=== PATIENT | female | born 1955 | race African-American/Black ===

== ENCOUNTER 2023-04-01 18:13 | Inpatient (IN) ==
--- NOTE | 2023-04-01 18:32 | DR.SOBA ---
HPI Time Seen Time Seen by Provider: 04/01/23 18:32 Complaints Chief Complaint Doctors Comments: 67-year-old female brought in by EMS for evaluation. Has been having increasing swelling of her lower extremities over the past few weeks. She is also having exertional dyspnea, that is getting worse. She has a cough productive of some white sputum. Denies any chest pain. She has had no bowel or bladder issue. Her primary care physician, Dr. Hills, added Lasix to her regimen in December. She states she has been taking it. Denies fever, chills. Reviewed Nurses Notes Reviewed: Yes Source History Provided: Patient, EMS and Other (EMR) PMH PMH Past Surgical History: No Social History Do you use any recreational Drugs:: No ROS Review of Systems Constitutional: Weakness Eyes: No Symptoms Reported ENTM: No Symptoms Reported Respiratoy: Moist Cough and Short of Breath Cardiovascular: Edema Gastrointestinal/Abdominal: No Symptoms Reported Genitourinary: No Symptoms Reported Neurological: Weakness Musculoskeletal: No Symptoms Reported Integumentary: No Symptoms Reported All Other Systems: Reviewed and Negative PE Vital Signs Vitals: Vital Signs Temperature 97.7 F Respiratory Rate 20 Blood Pressure 106/66 General General Appearance: Alert and In No Apparent Distress Eyes Eye exam: PERRL and EOMI ENT ENT Exam: Normal Oropharynx and Mucous Membranes Moist Neck Neck Exam: Other (+JVD); negative Tenderness Respiratory Respiratory Exam: Other (Has bibasilar rales); negative Accessory Muscle Use or Respiratory Distress Cardiovascular Cardiovascular Exam: Regular Rate, Normal Rhythm and Normal Heart Sounds Abdominal Exam Abdominal Exam: Normal Bowel Sounds, Soft and Other ( +Swelling of the abdominal wall); negative Tenderness Extremities Extremities Exam: Edema (4+ pitting edema bilateral lower extremity) Back Back Exam: Other (Presacral edema) Neurologic Neurological Exam: Alert, Oriented X3 and CN II-XII Intact; negative Motor Sensory Deficit Skin Skin Exam: Warm and Dry COURSE Treatment Treatment: 67-year-old female, presents with increasing swelling. Clinically with anasarca. Work-up initiated. Patient given IV Lasix. 2000 -EKG with low voltage QRS, no acute ischemic changes. Chest x-ray with bilateral effusions, right greater than left, with increased markings consistent with pulmonary vascular congestion. Labs show a hemoglobin of 5.3 with an MCV of 69. Her BNP is elevated 2,380. Severe anemia, anasarca, abnormal troponin. discussed with her primary care attending, Dr. Hills. He feels the patient may do better at a facility with higher level of care, in particular cardiology. Will repeat a 2 hr troponin, to see if it is trending higher. Patient was signed over to my relief physician, Dr. Kumar. Repeat troponin was slightly higher. Patient admitted to Dr. Hills here. [facility] Labs Reviewed Laboratory Results Reviewed?: Yes 04/02/23 05:44 04/02/23 05:44 Laboratory: WBC 6.1 X10^3/uL (3.6-10.0) 04/01/23 18:46 RBC 2.74 X10^6/uL (3.5-5.4) L 04/01/23 18:46 Hgb 5.3 g/dL (12.0-16.0) L* 04/01/23 18:46 Hct 19.0 % (36.0-47.0) L* 04/01/23 18:46 MCV 69.1 fL (80.0-100.0) L 04/01/23 18:46 MCH 19.4 pg (27.0-34.0) L 04/01/23 18:46 MCHC 28.2 g/dL (33.0-35.0) L 04/01/23 18:46 RDW 25.9 % (11.6-16.5) H 04/01/23 18:46 Plt Count 210 X10^3/uL (150.0-450.0) 04/01/23 18:46 Plt Count Comment Adequate (ADEQUATE) 04/01/23 18:46 MPV 8.8 fL (7.4-11.0) 04/01/23 18:46 Neut % (Auto) 33.1 % (42.0-75.0) L 04/01/23 18:46 Lymph % (Auto) 62.0 % (21.0-51.0) H 04/01/23 18:46 [place] % (Auto) 4.2 % (0.0-13.0) 04/01/23 18:46 Eos % (Auto) 0.2 % (0.9-2.9) L 04/01/23 18:46 Baso % (Auto) 0.5 % (0.2-1.0) 04/01/23 18:46 Neut # (Auto) 2.0 x10^3/uL (2.2-4.8) L 04/01/23 18:46 Lymph # (Auto) 3.8 X10^3/uL (1.3-2.9) H 04/01/23 18:46 [place] # (Auto) 0.3 x10^3/uL (0.3-0.8) 04/01/23 18:46 Eos # (Auto) 0.0 x10^3/uL (0.0-0.2) 04/01/23 18:46 Baso # (Auto) 0.0 X10^3/uL (0.0-0.1) 04/01/23 18:46 Absolute Nucleated RBC 4.9 /100WBC 04/01/23 18:46 Total Counted 100 04/01/23 18:46 Neutrophils % (Manual) 82 % (39-76) H 04/01/23 18:46 Lymphocytes % (Manual) 14 % (13-43) 04/01/23 18:46 Monocytes % (Manual) 4 % (4-9) 04/01/23 18:46 Nucleated RBCs 5 04/01/23 18:46 Plt Morphology Comment Normal (NORMAL) 04/01/23 18:46 RBC Morphology Abnormal (NORMAL) A 04/01/23 18:46 Hypochromasia 3+ A 04/01/23 18:46 Poikilocytosis 1+ A 04/01/23 18:46 Anisocytosis 3+ A 04/01/23 18:46 Microcytosis 1+ A 04/01/23 18:46 Target Cells Present 04/01/23 18:46 Acanthocytes (Spur) Present 04/01/23 18:46 Schistocytes Present 04/01/23 18:46 Sodium 137 mmol/L (136-145) 04/01/23 18:46 Corrected Sodium 137 mmol/L (136-145) 04/01/23 18:46 Potassium 5.0 mmol/L (3.5-5.1) 04/01/23 18:46 Chloride 105 mmol/L (98-107) 04/01/23 18:46 Carbon Dioxide 26.0 mmol/L (21-32) 04/01/23 18:46 BUN 37 mg/dL (7-18) H 04/01/23 18:46 Creatinine 1.21 mg/dL (0.55-1.02) H 04/01/23 18:46 Est GFR (MDRD) Af Amer 57 (>60) L 04/01/23 18:46 Est GFR (MDRD) Non-Af 47 (>60) L 04/01/23 18:46 Glucose 114 mg/dL (65-99) H 04/01/23 18:46 Calcium 7.8 mg/dL (8.5-10.1) L 04/01/23 18:46 Corrected Calcium 9.2 mg/dL (8.5-10.1) 04/01/23 18:46 Total Bilirubin 0.70 mg/dL (0.2-1.0) 04/01/23 18:46 AST 34 Units/L (15-37) 04/01/23 18:46 ALT 11 Units/L (12-78) L 04/01/23 18:46 Alkaline Phosphatase 338 Units/L (46-116) H 04/01/23 18:46 Troponin I High Sens 112.5 ng/L (4.0-60.0) H* 04/01/23 20:46 B-Natriuretic Peptide 2380 pg/mL (0-79) H 04/01/23 18:46 Total Protein 6.9 g/dL (6.4-8.2) 04/01/23 18:46 Albumin 2.2 g/dL (3.4-5.0) L 04/01/23 18:46 Globulin 4.7 g/dL (2.5-4.5) H 04/01/23 18:46 Albumin/Globulin Ratio 0.5 Ratio (1.1-2.1) L 04/01/23 18:46 Severe anemia with a hemoglobin of 5.3, BNP elevated 2380. Initial troponin elevated at 90.5. Troponin bit higher at 112 XRAY XRAY Interpreted by: Self X-ray Results: Cardiomegaly with bilateral pleural effusions, right greater than left, with pulmonary vascular congestion. Opioid Opioid Risk Tool Age (Abhinav box if 16-45): No History of Preadolescent Sexual Abuse: No Total: 0 Total Score Risk Category: Low Risk Copyright: Michi CHEUNG predicting aberrant behaviors Discharge Plan Diagnosis Discharge Problem: Severe anemia, Anasarca, Elevated troponin Discharge Plan Patient Disposition: ADMITTED INPATIENT Condition: Stable
[2023-04-01] MEDS ORDERED: LASIX IVP ONE ×2 (18:38→18:41)
[2023-04-01 18:56] LABS: EOSINOPHILS % (AUTO) 0.2 % (0.9-2.9); WHITE BLOOD COUNT 6.1 X10^3/uL (3.6-10.0)
[2023-04-01 19:00] LABS: BASOPHILS % (AUTO) 0.5 % (0.2-1.0); LYMPHOCYTES # (AUTO) 3.8 X10^3/uL (1.3-2.9); MEAN CORPUSCULAR HEMOGLOBIN 19.4 pg (27.0-34.0); MEAN CORPUSCULAR HGB CONC 28.2 g/dL (33.0-35.0); MEAN CORPUSCULAR VOLUME 69.1 fL (80.0-100.0); MEAN PLATELET VOLUME 8.8 fL (7.4-11.0); MONOCYTES # (AUTO) 0.3 x10^3/uL (0.3-0.8); MONOCYTES % (AUTO) 4.2 % (0.0-13.0); NEUTROPHILS % (AUTO) 33.1 % (42.0-75.0); PLATELET COUNT 210 X10^3/uL (150.0-450.0); RED BLOOD COUNT 2.74 X10^6/uL (3.5-5.4); RED CELL DISTRIBUTION WIDTH 25.9 % (11.6-16.5)
[2023-04-01 19:05] LABS: HEMOGLOBIN 5.3 g/dL (12.0-16.0)
--- NOTE | 2023-04-01 19:07 | EKG ---
Test Reason : shortness of breath Blood Pressure : */* mmHG Vent. Rate : 81 BPM Atrial Rate : 81 BPM P-R Int : 148 ms QRS Dur : 82 ms QT Int : 360 ms P-R-T Axes : 58 47 247 degrees QTc Int : 418 ms Normal sinus rhythm Low voltage QRS Cannot rule out Anterior infarct , age undetermined Nonspecific ST and T wave abnormality Abnormal ECG No previous ECGs available Confirmed by Francis Tomlinson MD ([id number]) on 04/02/2023 9:14:18 AM Referred By: Confirmed By: Francis Tomlinson MD
[2023-04-01 19:21] LABS: ALBUMIN 2.2 g/dL (3.4-5.0); CALCIUM 7.8 mg/dL (8.5-10.1); COR CA(FOR HYPOALB) 9.2 mg/dL (8.5-10.1); CREATININE 1.21 mg/dL (0.55-1.02); TOTAL PROTEIN 6.9 g/dL (6.4-8.2)
[2023-04-01 19:30] LABS: ANISOCYTOSIS 3+; HYPOCHROMASIA 3+; MICROCYTOSIS 1+; PLATELET MORPHOLOGY COMMENT NORMAL (NORMAL)
[2023-04-01 19:31] LABS: TARGET CELLS PRESENT
[2023-04-01 19:35] LABS: SCHISTOCYTES PRESENT
[2023-04-01 19:36] LABS: POIKILOCYTOSIS 1+
--- NOTE | 2023-04-01 22:22 | DR.SOBA ---
HPI Time Seen Time Seen by Provider: 04/01/23 18:32 Primary Care Physician Primary Care Physician: nfd Complaints Chief Complaint:: pt states" she has been having trouble breathing and swelling for a couple of weeks." Pt denies any pain. Self Treatment fo Chief Complaint: pt takes lasixs and Toprolol. COVID-19 Coronavirus risk:travel/contact w/high risk person: No Has patient experienced Coronavirus symptoms: No Source History Provided: Patient, EMS and Other (EMR) Mode of Arrival Mode of Arrival: Stretcher Timing Onset of Chief Complaint: 03/11/23 PMH PMH Past Medical History: Yes Past Medical History: Hypertension Past Medical History Comment: pt not sure of medical hx Past Surgical History: No Family History History of Family Medical Conditions: Yes Family Medical History: Diabetes Mellitus Social History Alcohol Use: None Do you use any recreational Drugs:: No Lives With: Alone Lives Where: Home Travel Risk Coronavirus risk:travel/contact w/high risk person: No Has patient experienced Coronavirus symptoms: No Infectious screening In the last 2 months have you had wt loss of >10#?: NO Have you had fever, night sweats or hemotysis?: No Have you traveled outside the country in the last 6 months?: No Isolation: Standard PE Vital Signs Vitals: Vital Signs Temperature 97.7 F Respiratory Rate 20 Blood Pressure 79/46 Blood Pressure 82/51 Blood Pressure 79/52 Blood Pressure 73/44 Blood Pressure 73/44 Blood Pressure 107/63 Blood Pressure 107/63 Blood Pressure 103/53 Blood Pressure 103/53 Blood Pressure 94/59 Blood Pressure 94/59 Blood Pressure 106/66 Blood Pressure 106/66 Blood Pressure 106/66 COURSE Treatment Treatment: EKG, labs, x-rays Reevaluation 1st: Improved ROR Labs Reviewed Laboratory Results Reviewed?: Yes 04/01/23 18:46 04/01/23 18:46 Laboratory: WBC 6.1 X10^3/uL (3.6-10.0) 04/01/23 18:46 RBC 2.74 X10^6/uL (3.5-5.4) L 04/01/23 18:46 Hgb 5.3 g/dL (12.0-16.0) L* 04/01/23 18:46 Hct 19.0 % (36.0-47.0) L* 04/01/23 18:46 MCV 69.1 fL (80.0-100.0) L 04/01/23 18:46 MCH 19.4 pg (27.0-34.0) L 04/01/23 18:46 MCHC 28.2 g/dL (33.0-35.0) L 04/01/23 18:46 RDW 25.9 % (11.6-16.5) H 04/01/23 18:46 Plt Count 210 X10^3/uL (150.0-450.0) 04/01/23 18:46 Plt Count Comment Adequate (ADEQUATE) 04/01/23 18:46 MPV 8.8 fL (7.4-11.0) 04/01/23 18:46 Neut % (Auto) 33.1 % (42.0-75.0) L 04/01/23 18:46 Lymph % (Auto) 62.0 % (21.0-51.0) H 04/01/23 18:46 [place] % (Auto) 4.2 % (0.0-13.0) 04/01/23 18:46 Eos % (Auto) 0.2 % (0.9-2.9) L 04/01/23 18:46 Baso % (Auto) 0.5 % (0.2-1.0) 04/01/23 18:46 Neut # (Auto) 2.0 x10^3/uL (2.2-4.8) L 04/01/23 18:46 Lymph # (Auto) 3.8 X10^3/uL (1.3-2.9) H 04/01/23 18:46 [place] # (Auto) 0.3 x10^3/uL (0.3-0.8) 04/01/23 18:46 Eos # (Auto) 0.0 x10^3/uL (0.0-0.2) 04/01/23 18:46 Baso # (Auto) 0.0 X10^3/uL (0.0-0.1) 04/01/23 18:46 Absolute Nucleated RBC 4.9 /100WBC 04/01/23 18:46 Total Counted 100 04/01/23 18:46 Neutrophils % (Manual) 82 % (39-76) H 04/01/23 18:46 Lymphocytes % (Manual) 14 % (13-43) 04/01/23 18:46 Monocytes % (Manual) 4 % (4-9) 04/01/23 18:46 Nucleated RBCs 5 04/01/23 18:46 Plt Morphology Comment Normal (NORMAL) 04/01/23 18:46 RBC Morphology Abnormal (NORMAL) A 04/01/23 18:46 Hypochromasia 3+ A 04/01/23 18:46 Poikilocytosis 1+ A 04/01/23 18:46 Anisocytosis 3+ A 04/01/23 18:46 Microcytosis 1+ A 04/01/23 18:46 Target Cells Present 04/01/23 18:46 Acanthocytes (Spur) Present 04/01/23 18:46 Schistocytes Present 04/01/23 18:46 Sodium 137 mmol/L (136-145) 04/01/23 18:46 Corrected Sodium 137 mmol/L (136-145) 04/01/23 18:46 Potassium 5.0 mmol/L (3.5-5.1) 04/01/23 18:46 Chloride 105 mmol/L (98-107) 04/01/23 18:46 Carbon Dioxide 26.0 mmol/L (21-32) 04/01/23 18:46 BUN 37 mg/dL (7-18) H 04/01/23 18:46 Creatinine 1.21 mg/dL (0.55-1.02) H 04/01/23 18:46 Est GFR (MDRD) Af Amer 57 (>60) L 04/01/23 18:46 Est GFR (MDRD) Non-Af 47 (>60) L 04/01/23 18:46 Glucose 114 mg/dL (65-99) H 04/01/23 18:46 Calcium 7.8 mg/dL (8.5-10.1) L 04/01/23 18:46 Corrected Calcium 9.2 mg/dL (8.5-10.1) 04/01/23 18:46 Total Bilirubin 0.70 mg/dL (0.2-1.0) 04/01/23 18:46 AST 34 Units/L (15-37) 04/01/23 18:46 ALT 11 Units/L (12-78) L 04/01/23 18:46 Alkaline Phosphatase 338 Units/L (46-116) H 04/01/23 18:46 Troponin I High Sens 112.5 ng/L (4.0-60.0) H* 04/01/23 20:46 B-Natriuretic Peptide 2380 pg/mL (0-79) H 04/01/23 18:46 Total Protein 6.9 g/dL (6.4-8.2) 04/01/23 18:46 Albumin 2.2 g/dL (3.4-5.0) L 04/01/23 18:46 Globulin 4.7 g/dL (2.5-4.5) H 04/01/23 18:46 Albumin/Globulin Ratio 0.5 Ratio (1.1-2.1) L 04/01/23 18:46 XRAY XRAY Interpreted by: Radiologist Opioid Opioid Risk Tool Age (Abhinav box if 16-45): No History of Preadolescent Sexual Abuse: No Total: 0 Total Score Risk Category: Low Risk Copyright: Michi CHEUNG predicting aberrant behaviors Discharge Plan Diagnosis Discharge Problem: Severe anemia, Anasarca, Elevated troponin Discharge Plan Patient Disposition: ADMITTED INPATIENT Condition: Stable Prescriptions: No Action trazodone 100 mg tablet 100 mg PO QPM Qty: 30 3RF azithromycin [Zithromax Z-Esa] 250 mg tablet See Rx Instructions PO .COMPLEX Qty: 6 0RF Rx Instructions: For 250 mg dose pack: take 500 mg today (day 1), then 250 mg for 4 days (days 2-5) PO metoprolol succinate 50 mg tablet extended release 24 hr 50 mg PO QDAY Qty: 30 3RF benzonatate 200 mg capsule 200 mg PO BID-TID PRN (Reason: cough) Qty: 30 2RF levofloxacin 500 mg tablet 500 mg PO QDAY Qty: 10 0RF methylprednisolone [Medrol (Esa)] 4 mg tablets,dose pack See Rx Instructions PO PER PKG DIR Qty: 21 0RF Rx Instructions: PO PER PKG DIR gabapentin 300 mg capsule 300 mg PO TID ipratropium-albuterol 20-100 mcg/actuation mist 1 puff inhalation Q6H Qty: 4 5RF ammonium lactate 12 % cream topical Patient Comments: [NO ORIGINAL SIG] chlorthalidone 25 mg tablet 25 mg PO QDAY Qty: 90 3RF hydrocodone-acetaminophen 10-325 mg tablet 1 tab PO Q6H MDD 3 PRN (Reason: pain) 30 Days Qty: 120 0RF omeprazole 40 mg capsule,delayed release(DR/EC) 40 mg PO QDAY Qty: 90 3RF tizanidine 4 mg tablet 4 mg PO TID PRN (Reason: for muscle relaxation) Qty: 60 3RF furosemide 20 mg tablet 20 mg PO BID Qty: 60 5RF potassium chloride 10 mEq tablet extended release 10 meq PO BID Qty: 60 3RF Rx Instructions: Take potassium tablets when furosemide is taken. Health Concerns: Post Hospitalization: new medications and changes needed to prevent readmission or further decline. Pt educated and given instructions on all concerns. Plan of Treatment: Continue with present treatment and follow up plan. Pt is to keep follow up appointment as instructed and take medications as ordered. Follow ups/Referrals Follow ups/Referrals: STALIN BETTENCOURT [Primary Care Provider] - 3 days
[2023-04-01 23:19] LABS: BILIRUBIN,URINE NEGATIVE (NEGATIVE); BLOOD/HEMOGLOBIN,URINE 2+ (NEGATIVE); GLUCOSE, URINE NEGATIVE (NEGATIVE); KETONES,URINE NEGATIVE (NEGATIVE); LEUKOCYTE ESTERASE ,URINE 2+ (NEGATIVE); NITRITES,URINE NEGATIVE (NEGATIVE); PROTEIN,URINE 2+ (NEGATIVE); UROBILINOGEN,URINE NORMAL (NORMAL)
--- NOTE | 2023-04-01 23:58 | RAD ---
HISTORYpt states" she has been having trouble breathing and swelling for a couple of weeks." Pt denies any pain. Relevant Clinical InformationSTUDYCHEST, 1 VIEWCOMPARISONNoneFINDINGSThe trachea is midline. The cardiac silhouette is mildly enlarged.. Moderate-sized loculated right pleural effusion. Small left pleural effusion. Bibasilar is subsegmental atelectasis or infiltrates. The bony thorax is unremarkable.IMPRESSIONMild cardiomegalyBilateral pleural effusions right greater than left with underlying subsegmental atelectasis and/or infiltrates..Electronically signed by: Pasquale Galeas (Apr 01, 2023 23:57:27)
[2023-04-02 00:21] LABS: APPEARANCE,URINE TURBID (CLEAR); BACTERIA,URINE 1+ /HPF (NEGATIVE); COLOR,URINE YELLOW (YELLOW); SQUAMOUS EPITHELIAL CELL,UR MANY /HPF (NEGATIVE)
[2023-04-02 01:26] VITALS: BMI 23.3
[2023-04-02] MEDS ORDERED: DUONEB 0.5 MG/3 MG (3 mL) NEB ONE (01:29)
[2023-04-02] MEDS: DUONEB 0.5 MG/3 MG (3 mL) NEB SCH ×4 (01:30→17:22)
[2023-04-02 06:10] LABS: MEAN PLATELET VOLUME 8.8 fL (7.4-11.0)
[2023-04-02 06:19] LABS: BASOPHILS # (AUTO) 0.1 X10^3/uL (0.0-0.1); BASOPHILS % (AUTO) 1.1 % (0.2-1.0); EOSINOPHILS % (AUTO) 0.2 % (0.9-2.9); LYMPHOCYTES # (AUTO) 0.7 X10^3/uL (1.3-2.9); LYMPHOCYTES % (AUTO) 9.9 % (21.0-51.0); MEAN CORPUSCULAR HEMOGLOBIN 19.9 pg (27.0-34.0); MEAN CORPUSCULAR HGB CONC 28.7 g/dL (33.0-35.0); MEAN CORPUSCULAR VOLUME 69.5 fL (80.0-100.0); MONOCYTES # (AUTO) 0.8 x10^3/uL (0.3-0.8); MONOCYTES % (AUTO) 12.1 % (0.0-13.0); NEUTROPHILS # (AUTO) 5.1 x10^3/uL (2.2-4.8); NEUTROPHILS % (AUTO) 76.7 % (42.0-75.0); PLATELET COUNT 192 X10^3/uL (150.0-450.0); RED BLOOD COUNT 2.73 X10^6/uL (3.5-5.4); RED CELL DISTRIBUTION WIDTH 26.2 % (11.6-16.5)
[2023-04-02 06:21] LABS: ALANINE AMINOTRANSFERASE 11 Units/L (12-78); ALBUMIN 2.4 g/dL (3.4-5.0); ALKALINE PHOSPHATASE 365 Units/L (46-116); ASPARTATE AMINO TRANSFERASE 31 Units/L (15-37); BLOOD UREA NITROGEN 38 mg/dL (7-18); CALCIUM 8.4 mg/dL (8.5-10.1); CHLORIDE 103 mmol/L (98-107); COR CA(FOR HYPOALB) 9.7 mg/dL (8.5-10.1); COR NA(FOR HYPERGLY) 140 mmol/L (136-145); CREATININE 1.11 mg/dL (0.55-1.02); GLUCOSE 126 mg/dL (65-99); POTASSIUM 4.2 mmol/L (3.5-5.1); SODIUM 139 mmol/L (136-145); TOTAL PROTEIN 7.2 g/dL (6.4-8.2); eGFR NON BLACK RACES 52 (>60)
[2023-04-02 06:23] LABS: HEMOGLOBIN 5.4 g/dL (12.0-16.0)
[2023-04-02 06:52] LABS: ANISOCYTOSIS 3+; HYPOCHROMASIA 3+; MICROCYTOSIS 1+; PLATELET MORPHOLOGY COMMENT NORMAL (NORMAL); POIKILOCYTOSIS 1+; TARGET CELLS 1+
[2023-04-02 06:53] LABS: SCHISTOCYTES SLIGHT; WHITE BLOOD COUNT 6.6 X10^3/uL (3.6-10.0)
[2023-04-02] MEDS ORDERED: NORCO 10/325 TAB PO PRN (08:35)
[2023-04-02] MEDS ORDERED: TYLENOL 325 MG TAB PO ONE ×2 (08:43→12:00)
[2023-04-02] MEDS ORDERED: BENADRYL INJ 50 MG VIAL IVP ONE ×2 (08:44→12:00)
[2023-04-02] MEDS: LASIX IVP SCH ×2 (09:13→17:22)
[2023-04-02] MEDS: K-DUR TAB 20 MEQ PO SCH ×2 (09:13→20:30)
[2023-04-02] MEDS ORDERED: ZANAFLEX PO PRN (09:15)
[2023-04-02] MEDS ORDERED: PriLOSEC PO SCH (10:00)
[2023-04-02] MEDS: NEURONTIN CAP 300 MG PO SCH ×3 (11:36→21:15)
--- NOTE | 2023-04-02 14:16 | DR.CONSULT ---
CONSULT Consultation for Day of: Date: 04/02/23 Chief Complaint Chief Complaint: sob/edema/weak Allergies Allergies Allergy/AdvReac Type Severity Reaction Status Date / Time No Known Drug Allergies Allergy Unknown Verified 12/16/22 14:01 History of Present Illness History of Present Illness: no past cardiac history- does smoke/have htn/gerd/edema- admitted for symptoms above. ekg: nsr ?as mi ns st/t cxr: big heart/r pleural effusion labs: hct 19 with mcv69, cr 1.1 bun 38 bnp 2010 trop 90-112, albumin 2.4 ua: 2plus protein- awaiting blood products/has compression device on legs and diureised some. 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- has lost 50 lbs in last few years Past Medical History Past Medical History: Hypertension Family History Family Medical History: Diabetes Mellitus Social History Does patient currently use any type of tobacco product: Yes (Cigarettes) Have you used tobacco products in the last 12 months: Yes Type of Tobacco Use: Cigarettes How many years tobacco product used: 10 Does any household member use tobacco: No Alcohol Use: None Drug Use: None Medications Home Medications: No Known Drug Allergies Allergy (Unknown, Verified 12/16/22 14:01) Physical Exam Vital Signs: Vital Signs Temperature 98.2 F Temperature 97.5 F Pulse Rate [Radial] 92 Pulse Rate [Radial] 89 Respiratory Rate 18 Respiratory Rate 22 Respiratory Rate 22 Blood Pressure [Right Arm] 89/54 Blood Pressure [Right Arm] 97/54 O2 Sat by Pulse Oximetry 95 thin elevated jvd decreased bs r base FREDA 1-2 plus edema Plan (1) Severe anemia: Status: Acute Plan: transfuse jarrett (2) Anasarca: Status: Acute (3) Elevated troponin: Status: Acute (4) Suspected chronic obstructive pulmonary disease based on initial evaluation: Status: Acute (5) Weakness: Status: Acute (6) Left atrial mass: Status: Acute (7) Low serum albumin: Status: Acute (8) Proteinuria: Status: Acute (9) Right heart failure: Status: Acute Narrative Support Text: big r heart/edema/elevated trop- consider PE but so anemic to give heparin Plan: too complicted pt- transfer to tertiary care facility- family desires [facility]
[2023-04-02] MEDS: PROTONIX INJ 40 MG VIAL IVP SCH (20:30)
[2023-04-02] MEDS: DESYREL PO SCH (20:30)
--- NOTE | 2023-04-02 21:53 | DR.H&P ---
H&P History & Physical for Day of: H&P Date: 04/02/23 Chief Complaint Chief Complaint: Increasing swelling of her legs Allergies Allergies Allergy/AdvReac Type Severity Reaction Status Date / Time No Known Drug Allergies Allergy Unknown Verified 12/16/22 14:01 History of Present Illness History of Present Illness: This is a pleasant 67-year-old black female well-kno wn to me. She presented to the [facility] emergency department last night with complaints of increasing swelling of her legs. Last saw her was in December 2022. She was complaining of bilateral lower extremity edema that time and I started her on p.o. Lasix at that time. She was also found to be profoundly anemic with a hemoglobin of 5.3 in the emergency department last night. Her hemoglobin has slightly come up this morning to 5.4. We have ordered 2 units of packed red blood cells to be given and premedicate her with Tylenol and Benadryl prior to transfusion. A BMP was checked and it was elevated at 2380. She also had an elevated troponin at 90.5. A repeat troponin increased to 112.5. This morning the patient reports she is feeling slightly better but is still short of breath. We will put on a consultation with cardiology and after Dr. Tomlinson saw the patient he recommended transferring the patient to a tertiary care center because of all the problems that she has going on. Echocardiogram showed that she has a left atrial mass. She also has profound anemia along with hypo albuminemia. However before we transfer we need to transfuse her and get her hemoglobin up and we will diurese her to try get off this extra fluid prior to transfer. The patient and her family wishes her to go to [place], [place] for continued treatment of these problems. Past Medical History Past Medical History: Hypertension Family History Family Medical History: Diabetes Mellitus Social History Does patient currently use any type of tobacco product: Yes (Cigarettes) Have you used tobacco products in the last 12 months: Yes Type of Tobacco Use: Cigarettes How many years tobacco product used: 10 Does any household member use tobacco: No Alcohol Use: None Drug Use: None Medications Home Medications: Home Medications Medication Instructions Recorded Confirmed Type gabapentin 300 mg capsule 300 mg PO TID 09/17/22 11/13/22 History ammonium lactate 12 % topical cream applic topical 12/15/22 12/15/22 History Labs 04/02/23 05:44 04/02/23 05:44 Labs: 04/02/23 01:30 Sputum - Expectorated Sputum - Final Laboratory WBC 6.6 X10^3/uL (3.6-10.0) 04/02/23 05:44 RBC 2.73 X10^6/uL (3.5-5.4) L 04/02/23 05:44 Hgb 5.4 g/dL (12.0-16.0) L* 04/02/23 05:44 Hct 19.0 % (36.0-47.0) L* 04/02/23 05:44 MCV 69.5 fL (80.0-100.0) L 04/02/23 05:44 MCH 19.9 pg (27.0-34.0) L 04/02/23 05:44 MCHC 28.7 g/dL (33.0-35.0) L 04/02/23 05:44 RDW 26.2 % (11.6-16.5) H 04/02/23 05:44 Plt Count 192 X10^3/uL (150.0-450.0) 04/02/23 05:44 Plt Count Comment Adequate (ADEQUATE) 04/02/23 05:44 MPV 8.8 fL (7.4-11.0) 04/02/23 05:44 Neut % (Auto) 76.7 % (42.0-75.0) H 04/02/23 05:44 Lymph % (Auto) 9.9 % (21.0-51.0) L 04/02/23 05:44 [place] % (Auto) 12.1 % (0.0-13.0) 04/02/23 05:44 Eos % (Auto) 0.2 % (0.9-2.9) L 04/02/23 05:44 Baso % (Auto) 1.1 % (0.2-1.0) H 04/02/23 05:44 Neut # (Auto) 5.1 x10^3/uL (2.2-4.8) H 04/02/23 05:44 Lymph # (Auto) 0.7 X10^3/uL (1.3-2.9) L 04/02/23 05:44 [place] # (Auto) 0.8 x10^3/uL (0.3-0.8) 04/02/23 05:44 Eos # (Auto) 0.0 x10^3/uL (0.0-0.2) 04/02/23 05:44 Baso # (Auto) 0.1 X10^3/uL (0.0-0.1) 04/02/23 05:44 Absolute Nucleated RBC 6.2 /100WBC 04/02/23 05:44 Total Counted 100 04/01/23 18:46 Neutrophils % (Manual) 82 % (39-76) H 04/01/23 18:46 Lymphocytes % (Manual) 14 % (13-43) 04/01/23 18:46 Monocytes % (Manual) 4 % (4-9) 04/01/23 18:46 Nucleated RBCs 5 04/01/23 18:46 Plt Morphology Comment Normal (NORMAL) 04/02/23 05:44 RBC Morphology Abnormal (NORMAL) A 04/02/23 05:44 Hypochromasia 3+ A 04/02/23 05:44 Poikilocytosis 1+ A 04/02/23 05:44 Anisocytosis 3+ A 04/02/23 05:44 Microcytosis 1+ A 04/02/23 05:44 Target Cells 1+ A 04/02/23 05:44 Acanthocytes (Spur) Slight 04/02/23 05:44 Schistocytes Slight A 04/02/23 05:44 Sodium 139 mmol/L (136-145) 04/02/23 05:44 Corrected Sodium 140 mmol/L (136-145) 04/02/23 05:44 Potassium 4.2 mmol/L (3.5-5.1) 04/02/23 05:44 Chloride 103 mmol/L (98-107) 04/02/23 05:44 Carbon Dioxide 26.0 mmol/L (21-32) 04/02/23 05:44 BUN 38 mg/dL (7-18) H 04/02/23 05:44 Creatinine 1.11 mg/dL (0.55-1.02) H 04/02/23 05:44 Est GFR (MDRD) Af Amer > 60 (>60) 04/02/23 05:44 Est GFR (MDRD) Non-Af 52 (>60) L 04/02/23 05:44 Glucose 126 mg/dL (65-99) H 04/02/23 05:44 Calcium 8.4 mg/dL (8.5-10.1) L 04/02/23 05:44 Corrected Calcium 9.7 mg/dL (8.5-10.1) 04/02/23 05:44 Total Bilirubin 0.70 mg/dL (0.2-1.0) 04/02/23 05:44 AST 31 Units/L (15-37) 04/02/23 05:44 ALT 11 Units/L (12-78) L 04/02/23 05:44 Alkaline Phosphatase 365 Units/L (46-116) H 04/02/23 05:44 Troponin I High Sens 112.5 ng/L (4.0-60.0) H* 04/01/23 20:46 B-Natriuretic Peptide 2010 pg/mL (0-79) H 04/02/23 05:44 Total Protein 7.2 g/dL (6.4-8.2) 04/02/23 05:44 Albumin 2.4 g/dL (3.4-5.0) L 04/02/23 05:44 Globulin 4.8 g/dL (2.5-4.5) H 04/02/23 05:44 Albumin/Globulin Ratio 0.5 Ratio (1.1-2.1) L 04/02/23 05:44 Specimen Type Catherized urine 04/01/23 23:11 Urine Color Yellow (YELLOW) 04/01/23 23:11 Urine Appearance Turbid (CLEAR) 04/01/23 23:11 Urine pH 5.0 (5.0 - 8.0) 04/01/23 23:11 Ur Specific [place] 1.020 (1.000-1.030) 04/01/23 23:11 Urine Protein 2+ (NEGATIVE) 04/01/23 23:11 Urine Glucose (UA) Negative (NEGATIVE) 04/01/23 23:11 Urine Ketones Negative (NEGATIVE) 04/01/23 23:11 Urine Blood 2+ (NEGATIVE) 04/01/23 23:11 Urine Nitrite Negative (NEGATIVE) 04/01/23 23:11 Urine Bilirubin Negative (NEGATIVE) 04/01/23 23:11 Urine Urobilinogen Normal (NORMAL) 04/01/23 23:11 Ur Leukocyte Esterase 2+ (NEGATIVE) 04/01/23 23:11 Urine RBC 5-10 /HPF (0-3) A 04/01/23 23:11 Urine WBC 5-10 /HPF (0-5) A 04/01/23 23:11 Ur Squamous Epith Cells Many /HPF (NEGATIVE) 04/01/23 23:11 Amorphous Sediment 2+ /HPF (NEGATIVE) 04/01/23 23:11 Urine Bacteria 1+ /HPF (NEGATIVE) 04/01/23 23:11 Ur Culture Indicated? No/not indicated 04/01/23 23:11 Blood Type B POSITIVE 04/01/23 22:51 Blood Type B POSITIVE 04/01/23 22:51 Antibody Screen Negative 04/01/23 22:51 Crossmatch See Detail 04/01/23 22:51 Review of Systems Constitutional: Weakness and Malaise Eyes: No Symptoms Reported ENT: No Symptoms Reported Respiratory: Cough, Shortness of Breath and SOB with Excertion Cardiovascular: Orthopnea and Light Headedness Gastrointestinal: No Symptoms Reported Genitourinary: No Symptoms Reported Musculoskeletal: No Symptoms Reported Skin: No Symptoms Reported Neurological: No Symptoms Reported Physical Exam Vital Signs: Vital Signs Temperature 98.4 F Temperature 98.1 F Pulse Rate [Radial] 95 Pulse Rate [Radial] 94 Respiratory Rate 20 Respiratory Rate 16 Blood Pressure [Right Arm] 93/56 Blood Pressure [Right Arm] 97/59 O2 Sat by Pulse Oximetry 96 O2 Sat by Pulse Oximetry 93 Oriented: Normal, Time, Person and Place Eyes: Normal Ear: Normal Nose: Normal Throat: Normal Respiratory: RLL Rales and LLL Rales Cardiovascular: Normal Auscultation: Bowel Sounds: Normal Palpation: Normal Tenderness: Normal Skin: Normal Musculoskeletal: Normal Psychiatric: Normal Mood Description: Calm Affect: Normal Speech Pattern: Clear and Appropriate Assessment/Plan (1) Severe anemia: Status: Acute Plan: Transfused 2 L packed red blood cells and premedicate with p.o. Tylenol and IV Benadryl prior to transfusion. (2) Anasarca: Status: Acute Plan: IV diuresis with Lasix. (3) Elevated troponin: Status: Acute Plan: Cardiology consultation. (4) Suspected chronic obstructive pulmonary disease based on initial evaluation: Status: Acute (5) Weakness: Status: Acute (6) Left atrial mass: Status: Acute Plan: We will plan on transferring the patient to [place], [place] so the patient may have further evaluation and treatment there at a tertiary care center. (7) Low serum albumin: Status: Acute (8) Proteinuria: Status: Acute (9) Right heart failure: Status: Acute Review H&P Reviewed: Yes Patient was examined?: Yes
[2023-04-02] MEDS ORDERED: NS 250 ML IV 250 ML IV ONE (21:59)
[2023-04-03] MEDS: DUONEB 0.5 MG/3 MG (3 mL) NEB SCH ×4 (00:02→17:03)
[2023-04-03 03:22] LABS: RED BLOOD COUNT 3.65 X10^6/uL (3.5-5.4)
[2023-04-03 03:25] LABS: BASOPHILS # (AUTO) 0.1 X10^3/uL (0.0-0.1); BASOPHILS % (AUTO) 0.8 % (0.2-1.0); EOSINOPHILS % (AUTO) 0.1 % (0.9-2.9); LYMPHOCYTES # (AUTO) 0.8 X10^3/uL (1.3-2.9); LYMPHOCYTES % (AUTO) 8.2 % (21.0-51.0); MEAN CORPUSCULAR HEMOGLOBIN 22.7 pg (27.0-34.0); MEAN CORPUSCULAR HGB CONC 30.6 g/dL (33.0-35.0); MEAN CORPUSCULAR VOLUME 74.1 fL (80.0-100.0); MONOCYTES % (AUTO) 10.3 % (0.0-13.0); NEUTROPHILS # (AUTO) 7.5 x10^3/uL (2.2-4.8); NEUTROPHILS % (AUTO) 80.6 % (42.0-75.0); PLATELET COUNT 183 X10^3/uL (150.0-450.0); RED CELL DISTRIBUTION WIDTH 26.2 % (11.6-16.5)
[2023-04-03 03:29] LABS: ALANINE AMINOTRANSFERASE 7 Units/L (12-78); ALBUMIN 2.2 g/dL (3.4-5.0); ALKALINE PHOSPHATASE 360 Units/L (46-116); ASPARTATE AMINO TRANSFERASE 29 Units/L (15-37); BLOOD UREA NITROGEN 36 mg/dL (7-18); CALCIUM 7.9 mg/dL (8.5-10.1); CARBON DIOXIDE 29.2 mmol/L (21-32); CHLORIDE 105 mmol/L (98-107); COR CA(FOR HYPOALB) 9.3 mg/dL (8.5-10.1); COR NA(FOR HYPERGLY) 139 mmol/L (136-145); CREATININE 1.01 mg/dL (0.55-1.02); GLUCOSE 115 mg/dL (65-99); HEMOGLOBIN 8.3 g/dL (12.0-16.0); POTASSIUM 4.4 mmol/L (3.5-5.1); SODIUM 139 mmol/L (136-145); TOTAL PROTEIN 6.9 g/dL (6.4-8.2); WHITE BLOOD COUNT 9.3 X10^3/uL (3.6-10.0); eGFR NON BLACK RACES 58 (>60)
[2023-04-03 03:34] LABS: ANISOCYTOSIS 3+; HYPOCHROMASIA 2+; MICROCYTOSIS SLIGHT; PLATELET MORPHOLOGY COMMENT NORMAL (NORMAL); POIKILOCYTOSIS 1+
[2023-04-03 03:35] LABS: SCHISTOCYTES 1+; TARGET CELLS 2+
[2023-04-03] MEDS: NEURONTIN CAP 300 MG PO SCH ×3 (06:00→21:46)
[2023-04-03] MEDS: K-DUR TAB 20 MEQ PO SCH ×3 (08:34→21:46)
[2023-04-03] MEDS: PROTONIX INJ 40 MG VIAL IVP SCH ×2 (08:38→21:46)
[2023-04-03] MEDS: LASIX IVP SCH ×2 (08:38→17:13)
[2023-04-03 09:29] LABS: ABG ALLEN TEST POS; ABG BASE EXCESS 1.4 mmol/L (-2.0-2.0); ABG HCO3 29.3 mmol/L (22-26)
--- NOTE | 2023-04-03 14:24 | CT ---
EXAM:BRAIN W/O CONHISTORY:change in status; CHF, PT ON RESPIRATORCOMPARISON:NoneTECHNIQUE:CT scan of the brain was obtained from skull base to vertex without contrast. Dose reduction techniques including Automated Exposure Control (AEC) and adjustment of mA and kV were utilized.Contrast: NoneFINDINGS:Extraaxial: No conspicuous extraaxial fluid or masses.Parenchyma: No conspicuous masses or infarcts, keep in mind most infarcts are evident on MRI and not CT. Age appropriate involutionary changes with mild small vessel ischemic changesVentricles: Symmetric and normal in size shape and position.Sella: No conspicuous sellar masses.Orbits: The visualized portions of the orbits as well as the globes are unremarkable.If there is clinical suspicion or symptomatology that persists or gets worse correlation with an MRI of the brain may be helpful.IMPRESSION:1. No evidence of acute intracranial pathology.2. Age-appropriate involutionary changes.3. Microvascular ischemic disease.THIS IS AN ELECTRONICALLY VERIFIED FINAL [id number]/03/2023 2:20 PM - Electronically signed by Lars Gómez DO
[2023-04-03 18:35] LABS: ABG BASE EXCESS 2.7 mmol/L (-2.0-2.0)
[2023-04-03 18:36] LABS: ABG ALLEN TEST POS; ABG HCO3 32.1 mmol/L (22-26)
[2023-04-03 20:51] LABS: ABG BASE EXCESS 3.4 mmol/L (-2.0-2.0)
[2023-04-03 20:53] LABS: ABG ALLEN TEST POS
[2023-04-03] MEDS: DESYREL PO SCH (21:45)
[2023-04-04] MEDS: DUONEB 0.5 MG/3 MG (3 mL) NEB SCH ×4 (00:34→17:29)
[2023-04-04] MEDS: NEURONTIN CAP 300 MG PO SCH ×3 (05:24→21:05)
[2023-04-04 06:11] VITALS: O2SAT 100
[2023-04-04] MEDS: PROTONIX INJ 40 MG VIAL IVP SCH ×2 (08:14→20:12)
[2023-04-04] MEDS: LASIX IVP SCH ×2 (08:14→17:03)
[2023-04-04] MEDS: K-DUR TAB 20 MEQ PO SCH ×2 (08:15→20:13)
[2023-04-04] MEDS: ROCEPHIN VIAL 1 GRAM 1 G in NS 100 ML IV 100 ML IV SCH (10:48)
[2023-04-04] MEDS ORDERED: NS 250 ML IV 250 ML IV PRN (11:10)
[2023-04-04] MEDS ORDERED: NS 250 ML IV 250 ML IV ONE (11:15)
--- NOTE | 2023-04-04 11:39 | PCM.PROG ---
Progress Note Progress Note for Day of Date of Exam: 04/04/23 Subjective Subjective: The patient is less alert this morning. She does follow commands and is able to squeeze my hands with her hands bilaterally. Serial ABG showing that she has elevated CO2 and decreased PO2 and this is likely the cause of her decreased activity. She has received 2 units packed red blood cells and her hemoglobin is up to 8.3 this morning. Echocardiogram showed that she has a left atrial mass and the golf professional here, Dr. Tomlinson is recommended that we transfer to a tertiary care center. We got in touch with [facility] in [place], [place] and they have agreed to accept the patient. We will be making arrangements for her to go later today. Past Medical Family Social History Allergies: Allergies No Known Drug Allergies Allergy (Unknown, Verified 12/16/22 14:01) Onset Date: 04/25/2020 Review of Systems ROS: Changes notes (describe) (Altered mental status) Vital Signs and I&O's Vital Signs: Vital Signs Temperature 98.3 F Temperature 98.9 F Pulse Rate [Radial] 98 Pulse Rate [Radial] 100 Pulse Rate 104 Respiratory Rate 23 Respiratory Rate 20 Blood Pressure [Right Arm] 111/68 Blood Pressure [Right Arm] 96/62 O2 Sat by Pulse Oximetry 100 O2 Sat by Pulse Oximetry 100 O2 Sat by Pulse Oximetry 99 Intake and Output: Intake & Output 04/01/23 04/02/23 04/03/23 04/04/23 11:59 11:59 11:59 11:59 Intake Total 463 / 463 2048 / 2048 100 / 100 Output Total 260 / 260 1100 / 1100 1475 / 1475 Balance 203 / 203 948 / 948 -1375 / -1375 Physical Exam Oriented: Normal, Time, Person and Place Eyes: Normal Ear: Normal Nose: Normal Throat: Normal Cardiovascular: Normal Auscultation: Bowel Sounds: Normal Tenderness: Normal Skin: Normal Musculoskeletal: Normal Psychiatric: Normal Mood Description: Calm Affect: Normal Speech Pattern: Aphasic Laboratory and Diagnostics 04/03/23 03:08 04/03/23 03:08 Labs: 04/02/23 01:30 Sputum - Expectorated Sputum Sputum Culture - Preliminary Escherichia Coli 04/02/23 01:30 Sputum - Expectorated Sputum - Final Laboratory WBC 9.3 X10^3/uL (3.6-10.0) 10/27/23 03:08 RBC 3.65 X10^6/uL (3.5-5.4) 04/03/23 03:08 Hgb 8.3 g/dL (12.0-16.0) L D 04/03/23 03:08 Hct 27.0 % (36.0-47.0) L 04/03/23 03:08 MCV 74.1 fL (80.0-100.0) L 04/03/23 03:08 MCH 22.7 pg (27.0-34.0) L 04/03/23 03:08 MCHC 30.6 g/dL (33.0-35.0) L 04/03/23 03:08 RDW 26.2 % (11.6-16.5) H 04/03/23 03:08 Plt Count 183 X10^3/uL (150.0-450.0) 04/03/23 03:08 Plt Count Comment Adequate (ADEQUATE) 04/03/23 03:08 MPV 9.0 fL (7.4-11.0) 04/03/23 03:08 Neut % (Auto) 80.6 % (42.0-75.0) H 04/03/23 03:08 Lymph % (Auto) 8.2 % (21.0-51.0) L 04/03/23 03:08 [place] % (Auto) 10.3 % (0.0-13.0) 04/03/23 03:08 Eos % (Auto) 0.1 % (0.9-2.9) L 04/03/23 03:08 Baso % (Auto) 0.8 % (0.2-1.0) 04/03/23 03:08 Neut # (Auto) 7.5 x10^3/uL (2.2-4.8) H 04/03/23 03:08 Lymph # (Auto) 0.8 X10^3/uL (1.3-2.9) L 04/03/23 03:08 [place] # (Auto) 1.0 x10^3/uL (0.3-0.8) H 04/03/23 03:08 Eos # (Auto) 0.0 x10^3/uL (0.0-0.2) 04/03/23 03:08 Baso # (Auto) 0.1 X10^3/uL (0.0-0.1) 04/03/23 03:08 Absolute Nucleated RBC 13.2 /100WBC 04/03/23 03:08 Total Counted 100 04/01/23 18:46 Neutrophils % (Manual) 82 % (39-76) H 04/01/23 18:46 Lymphocytes % (Manual) 14 % (13-43) 04/01/23 18:46 Monocytes % (Manual) 4 % (4-9) 04/01/23 18:46 Nucleated RBCs 5 04/01/23 18:46 Plt Morphology Comment Normal (NORMAL) 04/03/23 03:08 RBC Morphology Abnormal (NORMAL) A 04/03/23 03:08 Dimorphic RBCs 1+ 04/03/23 03:08 Hypochromasia 2+ A 04/03/23 03:08 Poikilocytosis 1+ A 04/03/23 03:08 Anisocytosis 3+ A 04/03/23 03:08 Microcytosis Slight A 04/03/23 03:08 Target Cells 2+ A 04/03/23 03:08 Acanthocytes (Spur) Slight 04/03/23 03:08 Schistocytes 1+ A 04/03/23 03:08 Sample Site Rr 04/03/23 20:30 ABG pH 7.280 (7.35-7.45) L 04/03/23 20:30 ABG pCO2 68.0 mmHg (35.0-45.0) H* 04/03/23 20:30 ABG pO2 71.0 mmHg (80.0-100.0) L 04/03/23 20:30 ABG HCO3 32.0 mmol/L (22-26) H* 04/03/23 20:30 ABG O2 Saturation 92.0 % (90-100) 04/03/23 20:30 ABG Base Excess 3.4 mmol/L (-2.0-2.0) H 04/03/23 20:30 [facility] Test Pos 04/03/23 20:30 A-a Gradient 307.0 mmHg 04/03/23 20:30 FiO2 65.0 04/03/23 20:30 Blood Gas Comments Rafita well 04/03/23 20:30 Sodium 139 mmol/L (136-145) 04/03/23 03:08 Corrected Sodium 139 mmol/L (136-145) 04/03/23 03:08 Potassium 4.4 mmol/L (3.5-5.1) 04/03/23 03:08 Chloride 105 mmol/L (98-107) 04/03/23 03:08 Carbon Dioxide 29.2 mmol/L (21-32) 04/03/23 03:08 BUN 36 mg/dL (7-18) H 04/03/23 03:08 Creatinine 1.01 mg/dL (0.55-1.02) 04/03/23 03:08 Est GFR (MDRD) Af Amer > 60 (>60) 04/03/23 03:08 Est GFR (MDRD) Non-Af 58 (>60) L 04/03/23 03:08 Glucose 115 mg/dL (65-99) H 04/03/23 03:08 Calcium 7.9 mg/dL (8.5-10.1) L 04/03/23 03:08 Corrected Calcium 9.3 mg/dL (8.5-10.1) 04/03/23 03:08 Total Bilirubin 1.50 mg/dL (0.2-1.0) H 04/03/23 03:08 AST 29 Units/L (15-37) 04/03/23 03:08 ALT 7 Units/L (12-78) L 04/03/23 03:08 Alkaline Phosphatase 360 Units/L (46-116) H 04/03/23 03:08 Troponin I High Sens 105.8 ng/L (4.0-60.0) H* 04/03/23 20:30 B-Natriuretic Peptide 1780 pg/mL (0-79) H 04/03/23 03:08 Total Protein 6.9 g/dL (6.4-8.2) 04/03/23 03:08 Albumin 2.2 g/dL (3.4-5.0) L 04/03/23 03:08 Globulin 4.7 g/dL (2.5-4.5) H 04/03/23 03:08 Albumin/Globulin Ratio 0.5 Ratio (1.1-2.1) L 04/03/23 03:08 Specimen Type Catherized urine 04/01/23 23:11 Urine Color Yellow (YELLOW) 04/01/23 23:11 Urine Appearance Turbid (CLEAR) 04/01/23 23:11 Urine pH 5.0 (5.0 - 8.0) 04/01/23 23:11 Ur Specific [place] 1.020 (1.000-1.030) 04/01/23 23:11 Urine Protein 2+ (NEGATIVE) 04/01/23 23:11 Urine Glucose (UA) Negative (NEGATIVE) 04/01/23 23:11 Urine Ketones Negative (NEGATIVE) 04/01/23 23:11 Urine Blood 2+ (NEGATIVE) 04/01/23 23:11 Urine Nitrite Negative (NEGATIVE) 04/01/23 23:11 Urine Bilirubin Negative (NEGATIVE) 04/01/23 23:11 Urine Urobilinogen Normal (NORMAL) 04/01/23 23:11 Ur Leukocyte Esterase 2+ (NEGATIVE) 04/01/23 23:11 Urine RBC 5-10 /HPF (0-3) A 04/01/23 23:11 Urine WBC 5-10 /HPF (0-5) A 04/01/23 23:11 Ur Squamous Epith Cells Many /HPF (NEGATIVE) 04/01/23 23:11 Amorphous Sediment 2+ /HPF (NEGATIVE) 04/01/23 23:11 Urine Bacteria 1+ /HPF (NEGATIVE) 04/01/23 23:11 Ur Culture Indicated? No/not indicated 04/01/23 23:11 Blood Type B POSITIVE 04/01/23 22:51 Blood Type B POSITIVE 04/01/23 22:51 Antibody Screen Negative 04/01/23 22:51 Crossmatch See Detail 04/01/23 22:51 Radiology Reviewed: Yes Plan (1) Severe anemia: Status: Acute Plan: Transfused 2 L packed red blood cells and premedicate with p.o. Tylenol and IV Benadryl prior to transfusion. Hemoglobin is better now at 8.3. (2) Anasarca: Status: Acute Plan: IV diuresis with Lasix. (3) Elevated troponin: Status: Acute Plan: Cardiology consultation. (4) Weakness: Status: Acute (5) Left atrial mass: Status: Acute Plan: We will plan on transferring the patient to [place], [place] so the patient may have further evaluation and treatment there at a tertiary care center. (6) Low serum albumin: Status: Acute (7) Suspected chronic obstructive pulmonary disease based on initial evaluation: Status: Acute (8) Proteinuria: Status: Acute (9) Right heart failure: Status: Acute
[2023-04-04 11:55] LABS: ALANINE AMINOTRANSFERASE 12 Units/L (12-78); ALBUMIN 2.2 g/dL (3.4-5.0); ALKALINE PHOSPHATASE 318 Units/L (46-116); ASPARTATE AMINO TRANSFERASE 28 Units/L (15-37); BLOOD UREA NITROGEN 31 mg/dL (7-18); CALCIUM 8.1 mg/dL (8.5-10.1); CARBON DIOXIDE 33.2 mmol/L (21-32); CHLORIDE 105 mmol/L (98-107); COR CA(FOR HYPOALB) 9.5 mg/dL (8.5-10.1); CREATININE 0.83 mg/dL (0.55-1.02); GLUCOSE 96 mg/dL (65-99); POTASSIUM 3.9 mmol/L (3.5-5.1); SODIUM 140 mmol/L (136-145); TOTAL PROTEIN 7.1 g/dL (6.4-8.2); eGFR NON BLACK RACES > 60 (>60)
[2023-04-04 11:56] LABS: BASOPHILS % (AUTO) 0.4 % (0.2-1.0); EOSINOPHILS # (AUTO) 0.1 x10^3/uL (0.0-0.2); EOSINOPHILS % (AUTO) 0.4 % (0.9-2.9); HEMATOCRIT 28.9 % (36.0-47.0); HEMOGLOBIN 8.5 g/dL (12.0-16.0); LYMPHOCYTES # (AUTO) 0.6 X10^3/uL (1.3-2.9); LYMPHOCYTES % (AUTO) 4.9 % (21.0-51.0); MEAN CORPUSCULAR HGB CONC 29.2 g/dL (33.0-35.0); MEAN CORPUSCULAR VOLUME 75.3 fL (80.0-100.0); MEAN PLATELET VOLUME 9.2 fL (7.4-11.0); MONOCYTES % (AUTO) 8.2 % (0.0-13.0); NEUTROPHILS # (AUTO) 10.3 x10^3/uL (2.2-4.8); NEUTROPHILS % (AUTO) 86.1 % (42.0-75.0); PLATELET COUNT 188 X10^3/uL (150.0-450.0); RED BLOOD COUNT 3.84 X10^6/uL (3.5-5.4); RED CELL DISTRIBUTION WIDTH 26.9 % (11.6-16.5); WHITE BLOOD COUNT 11.9 X10^3/uL (3.6-10.0)
[2023-04-04 12:31] LABS: PLATELET MORPHOLOGY COMMENT NORMAL (NORMAL)
[2023-04-04 12:32] LABS: ANISOCYTOSIS 3+; BURR CELLS PRESENT; HYPOCHROMASIA 1+; MICROCYTOSIS SLIGHT; TARGET CELLS PRESENT
[2023-04-04 12:33] LABS: SCHISTOCYTES PRESENT
[2023-04-04 12:34] LABS: POIKILOCYTOSIS 1+
--- NOTE | 2023-04-04 13:36 | PCM.PROG ---
Progress Note - Subjective Subjective: The patient is less alert this morning. She does follow commands and is able to squeeze my hands with her hands bilaterally. Serial ABG showing that she has elevated CO2 and decreased PO2 and this is likely the cause of her decreased activity. She has received 2 units packed red blood cells and her hemoglobin is up to 8.3 this morning. Echocardiogram showed that she has a left atrial mass and the pipe fitter helper here, Dr. Tomlinson is recommended that we transfer to a tertiary care center. We got in touch with [facility] in [place], [place] and they have agreed to accept the patient. We will be making arrangements for her to go later today. - Past Medical Family Social History Allergies: Allergies No Known Drug Allergies Allergy (Unknown, Verified 12/16/22 14:01) Onset Date: 04/25/2020 - Review of Systems ROS: Changes notes (describe) (Altered mental status) - Vital Signs and I&O's Vital Signs: Vital Signs Temperature 98.3 F Pulse Rate [Radial] 98 Pulse Rate 104 Respiratory Rate 23 Blood Pressure [Right Arm] 111/68 O2 Sat by Pulse Oximetry 100 O2 Sat by Pulse Oximetry 100 Intake and Output: Intake & Output 04/01/23 04/02/23 04/03/23 04/04/23 23:59 23:59 23:59 23:59 Intake Total 1611 / 1611 920 / 920 80 / 80 Output Total 1260 / 1260 775 / 775 800 / 800 Balance 351 / 351 145 / 145 -720 / -720 - Physical Exam Oriented: Normal, Time, Person, Place Eyes: Normal Ear: Normal Nose: Normal Throat: Normal Cardiovascular: Normal Auscultation: Bowel Sounds: Normal Tenderness: Normal Skin: Normal Musculoskeletal: Normal Psychiatric: Normal Mood Description: Calm Affect: Normal Speech Pattern: Aphasic - Laboratory and Diagnostics Result Diagrams: 04/04/23 11:30 04/04/23 11:30 Labs: 04/02/23 01:30 Sputum - Expectorated Sputum Sputum Culture - Preliminary Escherichia Coli 04/02/23 01:30 Sputum - Expectorated Sputum - Final Laboratory WBC 11.9 X10^3/uL (3.6-10.0) H 04/04/23 11:30 RBC 3.84 X10^6/uL (3.5-5.4) 04/04/23 11:30 Hgb 8.5 g/dL (12.0-16.0) L 04/04/23 11: Hct 28.9 % (36.0-47.0) L 04/04/23 11: MCV 75.3 fL (80.0-100.0) L 04/04/23 11: MCH 22.0 pg (27.0-34.0) L 04/04/23 11: MCHC 29.2 g/dL (33.0-35.0) L 04/04/23 11:30 RDW 26.9 % (11.6-16.5) H 04/04/23 11:30 Plt Count 188 X10^3/uL (150.0-450.0) 04/04/23 11: Plt Count Comment Adequate (ADEQUATE) 04/04/23 11: MPV 9.2 fL (7.4-11.0) 04/04/23 11: Neut % (Auto) 86.1 % (42.0-75.0) H 04/04/23 11: Lymph % (Auto) 4.9 % (21.0-51.0) L 04/04/23 11: [place] % (Auto) 8.2 % (0.0-13.0) 04/04/23 11: Eos % (Auto) 0.4 % (0.9-2.9) L 04/04/23 11: Baso % (Auto) 0.4 % (0.2-1.0) 04/04/23 11:30 Neut # (Auto) 10.3 x10^3/uL (2.2-4.8) H 04/04/23 11:30 Lymph # (Auto) 0.6 X10^3/uL (1.3-2.9) L 04/04/23 11:30 [place] # (Auto) 1.0 x10^3/uL (0.3-0.8) H 04/04/23 11:30 Eos # (Auto) 0.1 x10^3/uL (0.0-0.2) 04/04/23 11:30 Baso # (Auto) 0.0 X10^3/uL (0.0-0.1) 04/04/23 11:30 Absolute Nucleated RBC 16.4 /100WBC 04/04/23 11:30 Total Counted 100 04/04/23 11:30 Neutrophils % (Manual) 87 % (39-76) H 04/04/23 11:30 Lymphocytes % (Manual) 6 % (13-43) L 04/04/23 11:30 Monocytes % (Manual) 7 % (4-9) 04/04/23 11:30 Nucleated RBCs 17 04/04/23 11:30 Plt Morphology Comment Normal (NORMAL) 04/04/23 11:30 RBC Morphology Abnormal (NORMAL) A 04/04/23 11:30 Dimorphic RBCs 1+ 04/03/23 03:08 Hypochromasia 1+ A 04/04/23 11:30 Poikilocytosis 1+ A 04/04/23 11:30 Anisocytosis 3+ A 04/04/23 11:30 Microcytosis Slight A 04/04/23 11:30 Target Cells Present 04/04/23 11:30 [place] Cells Present 04/04/23 11:30 Acanthocytes (Spur) Present 04/04/23 11:30 Schistocytes Present 04/04/23 11:30 D-Dimer > 20.00 ug/ml (0.0-0.57) H 04/04/23 11:30 Sample Site Rr 04/03/23 20:30 ABG pH 7.280 (7.35-7.45) L 04/03/23 20:30 ABG pCO2 68.0 mmHg (35.0-45.0) H* 04/03/23 20:30 ABG pO2 71.0 mmHg (80.0-100.0) L 04/03/23 20:30 ABG HCO3 32.0 mmol/L (22-26) H* 04/03/23 20:30 ABG O2 Saturation 92.0 % (90-100) 04/03/23 20:30 ABG Base Excess 3.4 mmol/L (-2.0-2.0) H 04/03/23 20:30 [facility] Test Pos 04/03/23 20:30 A-a Gradient 307.0 mmHg 04/03/23 20:30 FiO2 65.0 04/03/23 20:30 Blood Gas Comments Rafita well 04/03/23 20:30 Sodium 140 mmol/L (136-145) 04/04/23 11:30 Corrected Sodium TNP 04/04/23 11:30 Potassium 3.9 mmol/L (3.5-5.1) 04/04/23 11:30 Chloride 105 mmol/L (98-107) 04/04/23 11:30 Carbon Dioxide 33.2 mmol/L (21-32) H 04/04/23 11:30 BUN 31 mg/dL (7-18) H 04/04/23 11:30 Creatinine 0.83 mg/dL (0.55-1.02) 04/04/23 11:30 Est GFR (MDRD) Af Amer > 60 (>60) 04/04/23 11:30 Est GFR (MDRD) Non-Af > 60 (>60) 04/04/23 11:30 Glucose 96 mg/dL (65-99) 04/04/23 11:30 Calcium 8.1 mg/dL (8.5-10.1) L 04/04/23 11:30 Corrected Calcium 9.5 mg/dL (8.5-10.1) 04/04/23 11:30 Total Bilirubin 1.10 mg/dL (0.2-1.0) H 04/04/23 11:30 AST 28 Units/L (15-37) 04/04/23 11:30 ALT 12 Units/L (12-78) 04/04/23 11:30 Alkaline Phosphatase 318 Units/L (46-116) H 04/04/23 11:30 Troponin I High Sens 105.8 ng/L (4.0-60.0) H* 04/03/23 20:30 B-Natriuretic Peptide 1780 pg/mL (0-79) H 04/03/23 03:08 Total Protein 7.1 g/dL (6.4-8.2) 04/04/23 11:30 Albumin 2.2 g/dL (3.4-5.0) L 04/04/23 11:30 Globulin 4.9 g/dL (2.5-4.5) H 04/04/23 11:30 Albumin/Globulin Ratio 0.4 Ratio (1.1-2.1) L 04/04/23 11:30 Specimen Type Catherized urine 04/01/23 23:11 Urine Color Yellow (YELLOW) 04/01/23 23:11 Urine Appearance Turbid (CLEAR) 04/01/23 23:11 Urine pH 5.0 (5.0 - 8.0) 04/01/23 23:11 Ur Specific [place] 1.020 (1.000-1.030) 04/01/23 23:11 Urine Protein 2+ (NEGATIVE) 04/01/23 23:11 Urine Glucose (UA) Negative (NEGATIVE) 04/01/23 23:11 Urine Ketones Negative (NEGATIVE) 04/01/23 23:11 Urine Blood 2+ (NEGATIVE) 04/01/23 23:11 Urine Nitrite Negative (NEGATIVE) 04/01/23 23:11 Urine Bilirubin Negative (NEGATIVE) 04/01/23 23:11 Urine Urobilinogen Normal (NORMAL) 04/01/23 23:11 Ur Leukocyte Esterase 2+ (NEGATIVE) 04/01/23 23:11 Urine RBC 5-10 /HPF (0-3) A 04/01/23 23:11 Urine WBC 5-10 /HPF (0-5) A 04/01/23 23:11 Ur Squamous Epith Cells Many /HPF (NEGATIVE) 04/01/23 23:11 Amorphous Sediment 2+ /HPF (NEGATIVE) 04/01/23 23:11 Urine Bacteria 1+ /HPF (NEGATIVE) 04/01/23 23:11 Ur Culture Indicated? No/not indicated 04/01/23 23:11 Blood Type B POSITIVE 04/01/23 22:51 Blood Type B POSITIVE 04/01/23 22:51 Antibody Screen Negative 04/01/23 22:51 Crossmatch See Detail 04/01/23 22:51 Procedures (ALL) - Central Line Placement PCM.CLCO: written consent (by POA) prep: mask, gown, gloves, other (MSBT) Centrial line prep: chlorhexidine scrub Local anesthsia used: lidocane 1% (1 cc SQ) Ultrasound used for placement: Yes (Good visual) Central line lumen ininserted: double (to right side, x1 attempt) Post procedure: sutured in place, good blood return, all ports aspirated, flushed,capped, sterile dressing applied (sterile stat lock to site + biopatch ) Post procedure xray: tip oc catheter in good position, no pneumothorax seen Patient tolerated procedure: Yes Complications: none (tolerated well)
[2023-04-04] MEDS ORDERED: OMNIPAQUE 350 mg/mL 100 mL BTL 100 ML ONE (14:36)
--- NOTE | 2023-04-04 19:21 | CT ---
EXAM:CTA, CHESTHISTORY:ELEVATED D- DIMER; PT UNABLE TO LIFT ARMS OUT OF THE WAYCOMPARISON:None.TECHNIQUE:Following the intravenous administration of iodinated contrast, spiral CT imaging was performed through the chest and axial, coronal, and sagittal CT images were generated. Multi planar 3D MIP images were also generated.FINDINGS:The heart size is markedly enlarged. The RV/LV ratio is 1.2 which suggests right heart strain. The right atria is also massively dilated. The main pulmonary artery measures 2.9 cm in diameter which is a normal diameter. The contrast enhancement throughout the pulmonary arteries is quite good and there is no pulmonary embolus identified. The ascending aorta measures up to 3.3 cm in diameter. There are some reactive size mediastinal and hilar lymph nodes. The airways are grossly clear. There is dependent atelectasis. There is upper lobe emphysema. There are air bronchograms in the posterior segment of the right upper lobe. There is a large right and moderate left pleural effusion.IMPRESSION:1. Negative for pulmonary embolus.2. Massive cardiomegaly with large right and moderate left pleural effusions.3. Upper lobe emphysema and dependent atelectasis.THIS IS AN ELECTRONICALLY VERIFIED FINAL [id number]/04/2023 7:17 PM - Electronically signed by Milton Aggarwal MD
[2023-04-04] MEDS: DESYREL PO SCH (20:12)
--- NOTE | 2023-04-04 23:31 | RAD ---
PROCEDURE: Chest X-ray 1 View .HISTORY: PICC line placement.TECHNIQUE: AP view.COMPARISON: 04/01/2023.TECHNICAL QUALITY: Satisfactory .FINDINGS:Right PICC line tip in the distal superior vena cava.Heart size upper limits of normal and unchanged.Mediastinum and hilar regions show no masses or lymphadenopathy .Mildly increased central vascularity.Continued moderate consolidation and pleural fluid lung bases similar to previous study.No acute bony abnormality .IMPRESSION:1. Good right PICC line placement.2. Continued congestive failure.Electronically signed by: Fredrick Sprague (Apr 04, 2023 23:29:56)
[2023-04-05] MEDS: DUONEB 0.5 MG/3 MG (3 mL) NEB SCH ×2 (00:20→05:01)
[2023-04-05 04:18] VITALS: RESP 22
[2023-04-05] MEDS: NEURONTIN CAP 300 MG PO SCH (05:38)
[2023-04-05 06:56] LABS: BASOPHILS # (AUTO) 0.1 X10^3/uL (0.0-0.1); BASOPHILS % (AUTO) 0.6 % (0.2-1.0); EOSINOPHILS % (AUTO) 0.3 % (0.9-2.9); HEMATOCRIT 25.4 % (36.0-47.0); HEMOGLOBIN 7.5 g/dL (12.0-16.0); LYMPHOCYTES # (AUTO) 0.5 X10^3/uL (1.3-2.9); LYMPHOCYTES % (AUTO) 5.5 % (21.0-51.0); MEAN CORPUSCULAR HEMOGLOBIN 22.6 pg (27.0-34.0); MEAN CORPUSCULAR HGB CONC 29.7 g/dL (33.0-35.0); MEAN CORPUSCULAR VOLUME 76.1 fL (80.0-100.0); MEAN PLATELET VOLUME 9.1 fL (7.4-11.0); MONOCYTES % (AUTO) 9.8 % (0.0-13.0); NEUTROPHILS # (AUTO) 8.2 x10^3/uL (2.2-4.8); NEUTROPHILS % (AUTO) 83.8 % (42.0-75.0); PLATELET COUNT 169 X10^3/uL (150.0-450.0); RED BLOOD COUNT 3.34 X10^6/uL (3.5-5.4); RED CELL DISTRIBUTION WIDTH 27.9 % (11.6-16.5)
[2023-04-05 07:10] LABS: WHITE BLOOD COUNT 9.8 X10^3/uL (3.6-10.0)
[2023-04-05 07:17] LABS: ALANINE AMINOTRANSFERASE 7 Units/L (12-78); ALKALINE PHOSPHATASE 259 Units/L (46-116); ASPARTATE AMINO TRANSFERASE 24 Units/L (15-37); BLOOD UREA NITROGEN 26 mg/dL (7-18); CALCIUM 8.2 mg/dL (8.5-10.1); CARBON DIOXIDE 33.3 mmol/L (21-32); CHLORIDE 107 mmol/L (98-107); COR CA(FOR HYPOALB) 9.8 mg/dL (8.5-10.1); CREATININE 0.66 mg/dL (0.55-1.02); GLUCOSE 84 mg/dL (65-99); POTASSIUM 3.7 mmol/L (3.5-5.1); SODIUM 141 mmol/L (136-145); TOTAL PROTEIN 6.5 g/dL (6.4-8.2); eGFR NON BLACK RACES > 60 (>60)
[2023-04-05 07:37] LABS: ANISOCYTOSIS 3+; HYPOCHROMASIA 1+; PLATELET MORPHOLOGY COMMENT NORMAL (NORMAL); POIKILOCYTOSIS 1+
[2023-04-05 07:38] LABS: BURR CELLS PRESENT; MICROCYTOSIS SLIGHT; SCHISTOCYTES PRESENT; TARGET CELLS PRESENT
[2023-04-05] MEDS: PROTONIX INJ 40 MG VIAL IVP SCH (09:01)
[2023-04-05] MEDS: ROCEPHIN VIAL 1 GRAM 1 G in NS 100 ML IV 100 ML IV SCH (09:01)
[2023-04-05] MEDS: LASIX IVP SCH (09:01)
[2023-04-05] MEDS: K-DUR TAB 20 MEQ PO SCH (09:01)
[2023-04-05 10:45] VITALS: BP 98/64; PULSE 105; TEMP 98.5
--- NOTE | 2023-04-07 16:36 | W.DIS.FURT ---
Summary of Discharge Discharge Summary of Date Date of Exam: 04/04/23 Admission Date Date of Admission: 04/01/23 Admission Diagnosis Patient Problems (Updated 04/04/23 @ 13:36 by Frank Smith) Severe anemia (Acute) D64.9 Anasarca (Acute) R60.1 Elevated troponin (Acute) R79.89 Hospital Course: Ms Pond is a 67-year-old female with a past medical history of hypertension, anemia, GERD and chronic edema presented with worsening swelling of the remedies and shortness of breath. In the ER she was found to have hemoglobin of 5.3 and was started on blood transfusion. Her BNP was elevated at 2380 and troponin 90.5. She was started on IV Lasix and cardiology was consulted. Patient was placed on BiPAP as per respiratory. Patient had echocardiogram done which showed a left atrial mass. Cardiology recommended transfer to tertiary care. Family preferred being transferred to [place]. Transfer center was notified and patient was transferred to [facility] in [place]. Patient was stable during transfer. Vital Signs: Vital Signs (72 hours) 04/02/23 11:38 04/02/23 12:00 04/02/23 12:38 Temperature 98.2 F Pulse Rate Pulse Rate [Radial] 92 H Respiratory Rate 22 18 22 Blood Pressure [Right Arm] 89/54 O2 Sat by Pulse Oximetry 95 Oxygen Delivery Method Nasal Cannula Oxygen Flow Rate 3 FIO2% 04/02/23 16:00 04/02/23 20:56 04/02/23 20:00 Temperature 98.1 F 98.4 F Pulse Rate Pulse Rate [Radial] 94 H 95 H Respiratory Rate 16 20 Blood Pressure [Right Arm] 97/59 93/56 O2 Sat by Pulse Oximetry 93 L 96 Oxygen Delivery Method Nasal Cannula Nasal Cannula Oxygen Flow Rate 4 4 FIO2% 36 04/02/23 19:00 04/03/23 00:00 04/03/23 04:00 Temperature 98.2 F 98.7 F Pulse Rate Pulse Rate [Radial] 106 H 104 H Respiratory Rate 20 20 Blood Pressure [Right Arm] 83/56 89/52 O2 Sat by Pulse Oximetry 95 96 Oxygen Delivery Method Nasal Cannula Room Air Room Air Oxygen Flow Rate 5 5 5 FIO2% 04/03/23 08:00 04/03/23 07:00 04/03/23 09:05 Temperature 98.9 F Pulse Rate Pulse Rate [Radial] 107 H Respiratory Rate 16 Blood Pressure [Right Arm] 94/54 O2 Sat by Pulse Oximetry 91 L Oxygen Delivery Method Nasal Cannula Nasal Cannula Nasal Cannula Oxygen Flow Rate 5 5 4 FIO2% 36 04/03/23 09:20 04/03/23 09:35 04/03/23 09:35 Temperature Pulse Rate Pulse Rate [Radial] Respiratory Rate Blood Pressure [Right Arm] O2 Sat by Pulse Oximetry Oxygen Delivery Method Venturi Mask Bi-pap Oxygen Flow Rate 6 FIO2% 50 70 70 04/03/23 12:00 04/03/23 16:00 04/03/23 18:43 Temperature 97.5 F L 98.4 F Pulse Rate Pulse Rate [Radial] 105 H 104 H Respiratory Rate 22 20 Blood Pressure [Right Arm] 96/62 94/59 O2 Sat by Pulse Oximetry 100 100 Oxygen Delivery Method Bi-pap Bi-pap Oxygen Flow Rate FIO2% 65 04/03/23 21:26 04/03/23 21:26 04/03/23 20:00 Temperature 98.2 F Pulse Rate Pulse Rate [Radial] 100 H Respiratory Rate 20 Blood Pressure [Right Arm] 98/62 O2 Sat by Pulse Oximetry 99 Oxygen Delivery Method Bi-pap Bi-pap Oxygen Flow Rate FIO2% 65 65 04/03/23 19:00 04/04/23 00:35 04/04/23 00:35 Temperature Pulse Rate 75 Pulse Rate [Radial] Respiratory Rate Blood Pressure [Right Arm] O2 Sat by Pulse Oximetry 96 Oxygen Delivery Method Bi-pap Oxygen Flow Rate FIO2% 65 65 04/04/23 00:00 04/04/23 04:00 04/04/23 06:10 Temperature 98.2 F 98.9 F Pulse Rate 104 H Pulse Rate [Radial] 100 H 100 H Respiratory Rate 20 20 Blood Pressure [Right Arm] 90/57 96/62 O2 Sat by Pulse Oximetry 97 99 100 Oxygen Delivery Method Bi-pap Bi-pap Oxygen Flow Rate FIO2% 65 65 04/04/23 06:11 04/04/23 08:37 04/04/23 08:37 Temperature Pulse Rate Pulse Rate [Radial] Respiratory Rate Blood Pressure [Right Arm] O2 Sat by Pulse Oximetry Oxygen Delivery Method Bi-pap Oxygen Flow Rate FIO2% 65 65 65 04/04/23 08:00 04/04/23 12:00 04/04/23 07:00 Temperature 98.3 F 97.3 F L Pulse Rate Pulse Rate [Radial] 98 H 106 H Respiratory Rate 23 22 Blood Pressure [Right Arm] 111/68 102/64 O2 Sat by Pulse Oximetry 100 100 Oxygen Delivery Method Bi-pap Bi-pap Bi-pap Oxygen Flow Rate FIO2% 65 65 65 04/04/23 14:10 04/04/23 15:23 04/04/23 16:00 Temperature 97.6 F Pulse Rate Pulse Rate [Radial] 102 H Respiratory Rate 22 23 Blood Pressure [Right Arm] 107/65 O2 Sat by Pulse Oximetry 100 Oxygen Delivery Method Heated High Flow NC Bi-pap Oxygen Flow Rate FIO2% 85 65 65 04/04/23 19:00 04/04/23 20:00 04/04/23 19:55 Temperature 98.5 F Pulse Rate Pulse Rate [Radial] 104 H Respiratory Rate 23 Blood Pressure [Right Arm] 110/66 O2 Sat by Pulse Oximetry 100 Oxygen Delivery Method Bi-pap Bi-pap Bi-pap Oxygen Flow Rate FIO2% 50 50 50 04/04/23 19:55 04/05/23 00:00 04/05/23 00:09 Temperature 98.5 F Pulse Rate Pulse Rate [Radial] 104 H Respiratory Rate 23 Blood Pressure [Right Arm] 110/66 O2 Sat by Pulse Oximetry 100 Oxygen Delivery Method Bi-pap Oxygen Flow Rate FIO2% 50 45 04/05/23 00:25 04/05/23 00:10 04/05/23 00:20 Temperature Pulse Rate 100 H Pulse Rate [Radial] Respiratory Rate Blood Pressure [Right Arm] O2 Sat by Pulse Oximetry 100 100 Oxygen Delivery Method Bi-pap Oxygen Flow Rate FIO2% 45 45 04/05/23 04:00 Temperature 100.6 F H Pulse Rate Pulse Rate [Radial] 114 H Respiratory Rate 22 Blood Pressure [Right Arm] 105/59 O2 Sat by Pulse Oximetry 100 Oxygen Delivery Method Bi-pap Oxygen Flow Rate FIO2% 45 Labs: Laboratory Last Values WBC 9.8 X10^3/uL (3.6-10.0) 04/05/23 06:27 RBC 3.34 X10^6/uL (3.5-5.4) L 04/05/23 06:27 Hgb 7.5 g/dL (12.0-16.0) L 04/05/23 06:27 Hct 25.4 % (36.0-47.0) L 04/05/23 06:27 MCV 76.1 fL (80.0-100.0) L 04/05/23 06:27 MCH 22.6 pg (27.0-34.0) L 04/05/23 06: MCHC 29.7 g/dL (33.0-35.0) L 04/05/23 06: RDW 27.9 % (11.6-16.5) H 04/05/23 06:27 Plt Count 169 X10^3/uL (150.0-450.0) 04/05/23 06:27 Plt Count Comment Adequate (ADEQUATE) 04/05/23 06: MPV 9.1 fL (7.4-11.0) 04/05/23 06: Neut % (Auto) 83.8 % (42.0-75.0) H 04/05/23 06: Lymph % (Auto) 5.5 % (21.0-51.0) L 04/05/23 06:27 [place] % (Auto) 9.8 % (0.0-13.0) 04/05/23 06:27 Eos % (Auto) 0.3 % (0.9-2.9) L 04/05/23 06:27 Baso % (Auto) 0.6 % (0.2-1.0) 04/05/23 06:27 Neut # (Auto) 8.2 x10^3/uL (2.2-4.8) H 04/05/23 06:27 Lymph # (Auto) 0.5 X10^3/uL (1.3-2.9) L 04/05/23 06:27 [place] # (Auto) 1.0 x10^3/uL (0.3-0.8) H 04/05/23 06:27 Eos # (Auto) 0.0 x10^3/uL (0.0-0.2) 04/05/23 06: Baso # (Auto) 0.1 X10^3/uL (0.0-0.1) 04/05/23 06: Absolute Nucleated RBC 17.3 /100WBC 04/05/23 06:27 Total Counted 100 04/04/23 11:30 Neutrophils % (Manual) 87 % (39-76) H 04/04/23 11:30 Lymphocytes % (Manual) 6 % (13-43) L 04/04/23 11:30 Monocytes % (Manual) 7 % (4-9) 04/04/23 11:30 Nucleated RBCs 17 04/04/23 11:30 Plt Morphology Comment Normal (NORMAL) 04/05/23 06:27 RBC Morphology Abnormal (NORMAL) A 04/05/23 06:27 Dimorphic RBCs 1+ 04/03/23 03:08 Hypochromasia 1+ A 04/05/23 06:27 Poikilocytosis 1+ A 04/05/23 06:27 Anisocytosis 3+ A 04/05/23 06:27 Microcytosis Slight A 04/05/23 06:27 Target Cells Present 04/05/23 06:27 Eliseo Cells Present 04/05/23 06:27 Acanthocytes (Spur) Present 04/05/23 06:27 Schistocytes Present 04/05/23 06:27 D-Dimer > 20.00 ug/ml (0.0-0.57) H 04/04/23 11:30 Sample Site Rr 04/03/23 20:30 ABG pH 7.280 (7.35-7.45) L 04/03/23 20:30 ABG pCO2 68.0 mmHg (35.0-45.0) H* 04/03/23 20:30 ABG pO2 71.0 mmHg (80.0-100.0) L 04/03/23 20:30 ABG HCO3 32.0 mmol/L (22-26) H* 04/03/23 20:30 ABG O2 Saturation 92.0 % (90-100) 04/03/23 20:30 ABG Base Excess 3.4 mmol/L (-2.0-2.0) H 04/03/23 20:30 [facility] Test Pos 04/03/23 20:30 A-a Gradient 307.0 mmHg 04/03/23 20:30 FiO2 65.0 04/03/23 20:30 Blood Gas Comments Rafita well 04/03/23 20:30 Sodium 141 mmol/L (136-145) 04/05/23 06:27 Corrected Sodium TNP 04/05/23 06:27 Potassium 3.7 mmol/L (3.5-5.1) 04/05/23 06:27 Chloride 107 mmol/L (98-107) 04/05/23 06:27 Carbon Dioxide 33.3 mmol/L (21-32) H 04/05/23 06:27 BUN 26 mg/dL (7-18) H 04/05/23 06:27 Creatinine 0.66 mg/dL (0.55-1.02) 04/05/23 06:27 Est GFR (MDRD) Af Amer > 60 (>60) 04/05/23 06:27 Est GFR (MDRD) Non-Af > 60 (>60) 04/05/23 06:27 Glucose 84 mg/dL (65-99) 04/05/23 06:27 Calcium 8.2 mg/dL (8.5-10.1) L 04/05/23 06:27 Corrected Calcium 9.8 mg/dL (8.5-10.1) 04/05/23 06:27 Total Bilirubin 0.80 mg/dL (0.2-1.0) 04/05/23 06:27 AST 24 Units/L (15-37) 04/05/23 06:27 ALT 7 Units/L (12-78) L 04/05/23 06:27 Alkaline Phosphatase 259 Units/L (46-116) H 04/05/23 06:27 Troponin I High Sens 105.8 ng/L (4.0-60.0) H* 04/03/23 20:30 B-Natriuretic Peptide 1780 pg/mL (0-79) H 04/03/23 03:08 Total Protein 6.5 g/dL (6.4-8.2) 04/05/23 06:27 Albumin 2.0 g/dL (3.4-5.0) L 04/05/23 06:27 Globulin 4.5 g/dL (2.5-4.5) 04/05/23 06:27 Albumin/Globulin Ratio 0.4 Ratio (1.1-2.1) L 04/05/23 06:27 Specimen Type Catherized urine 04/01/23 23:11 Urine Color Yellow (YELLOW) 04/01/23 23:11 Urine Appearance Turbid (CLEAR) 04/01/23 23:11 Urine pH 5.0 (5.0 - 8.0) 04/01/23 23:11 Ur Specific [place] 1.020 (1.000-1.030) 04/01/23 23:11 Urine Protein 2+ (NEGATIVE) 04/01/23 23:11 Urine Glucose (UA) Negative (NEGATIVE) 04/01/23 23:11 Urine Ketones Negative (NEGATIVE) 04/01/23 23:11 Urine Blood 2+ (NEGATIVE) 04/01/23 23:11 Urine Nitrite Negative (NEGATIVE) 04/01/23 23:11 Urine Bilirubin Negative (NEGATIVE) 04/01/23 23:11 Urine Urobilinogen Normal (NORMAL) 04/01/23 23:11 Ur Leukocyte Esterase 2+ (NEGATIVE) 04/01/23 23:11 Urine RBC 5-10 /HPF (0-3) A 04/01/23 23:11 Urine WBC 5-10 /HPF (0-5) A 04/01/23 23:11 Ur Squamous Epith Cells Many /HPF (NEGATIVE) 04/01/23 23:11 Amorphous Sediment 2+ /HPF (NEGATIVE) 04/01/23 23:11 Urine Bacteria 1+ /HPF (NEGATIVE) 04/01/23 23:11 Ur Culture Indicated? No/not indicated 04/01/23 23:11 Blood Type B POSITIVE 04/01/23 22:51 Blood Type B POSITIVE 04/01/23 22:51 Antibody Screen Negative 04/01/23 22:51 Crossmatch See Detail 04/01/23 22:51 Reason For Visit: CHF Discharge Diagnosis All Active Problems (Updated 04/04/23 @ 13:36 by Frank Smith) Right heart failure (Acute) Proteinuria (Acute) Low serum albumin (Acute) Left atrial mass (Acute) Severe anemia (Acute) Anasarca (Acute) Elevated troponin (Acute) On potassium wasting diuretic therapy (Acute) Edema of left lower extremity (Acute) Tracheitis (Acute) Edema of left upper extremity (Acute) Edema of both lower legs (Acute) Bilateral foot pain (Acute) Suspected chronic obstructive pulmonary disease based on initial evaluation (Acute) Weakness (Acute) Limping with cause localized to knee (Acute) Plan of Treatment: Continue with present treatment and follow up plan. Pt is to keep follow up appointment as instructed and take medications as ordered. Discharge Medications Discharge Medications: No Known Drug Allergies Allergy (Unknown, Verified 12/16/22 14:01) CONTINUE taking the following medications ipratropium 20 mcg-albuterol 100 mcg/actuation mist for inhalation (Combivent Respimat) 1 puff inhalation QID 04/03/23 [History] Discharge Disposition Discharge Disposition: [place] Discharge Condition: Stable Discharge Plan Discharge Plan Hospital Course: Ms Pond is a 67-year-old female with a past medical history of hypertension, anemia, GERD and chronic edema presented with worsening swelling of the remedies and shortness of breath. In the ER she was found to have hemoglobin of 5.3 and was started on blood transfusion. Her BNP was elevated at 2380 and troponin 90.5. She was started on IV Lasix and cardiology was consulted. Patient was placed on BiPAP as per respiratory. Patient had echocardiogram done which showed a left atrial mass. Cardiology recommended transfer to tertiary care. Family preferred being transferred to [place]. Transfer center was notified and patient was transferred to [facility] in [place]. Patient was stable during transfer. Patient Disposition: S[facility]-TRM HOSP Condition: Stable Health Concerns: Post Hospitalization: new medications and changes needed to prevent readmission or further decline. Pt educated and given instructions on all concerns. Plan of Treatment: Continue with present treatment and follow up plan. Pt is to keep follow up appointment as instructed and take medications as ordered. Prescriptions: No Action trazodone 100 mg tablet 100 mg PO QPM Qty: 30 3RF metoprolol succinate 50 mg tablet extended release 24 hr 50 mg PO QDAY Qty: 30 3RF benzonatate 200 mg capsule 200 mg PO BID-TID PRN (Reason: cough) Qty: 30 2RF gabapentin 300 mg capsule 300 mg PO TID ipratropium-albuterol 20-100 mcg/actuation mist 1 puff inhalation Q6H Qty: 4 5RF ammonium lactate 12 % cream topical Patient Comments: [NO ORIGINAL SIG] chlorthalidone 25 mg tablet 25 mg PO QDAY Qty: 90 3RF hydrocodone-acetaminophen 10-325 mg tablet 1 tab PO Q6H MDD 3 PRN (Reason: pain) 30 Days Qty: 120 0RF omeprazole 40 mg capsule,delayed release(DR/EC) 40 mg PO QDAY Qty: 90 3RF tizanidine 4 mg tablet 4 mg PO TID PRN (Reason: for muscle relaxation) Qty: 60 3RF furosemide 20 mg tablet 20 mg PO BID Qty: 60 5RF potassium chloride 10 mEq tablet extended release 10 meq PO BID Qty: 60 3RF Rx Instructions: Take potassium tablets when furosemide is taken. Combivent Respimat 20-100 mcg/actuation mist 1 puff inhalation QID Orders to Discharge Patient Discharge Orders: Discharge by Transfer to Outside Facility (Routine); Ordered 04/05/23 Ordered By: STALIN BETTENCOURT Follow ups/Referrals Follow ups/Referrals: STALIN BETTENCOURT [Primary Care Provider] - 3 days
== END 2023-04-05 09:15 | disposition short-term general hospital (02) | DRG 293 ==
LOC: ER 18:13 → MED/SURG 22:22
PROVIDERS: ADMIT Family Medicine; ATTEND Family Medicine
DX: J44.9 Chronic obstructive pulmonary disease, unspecified; R79.89 Other specified abnormal findings of blood chemistry; R53.1 Weakness; B96.29 Other Escherichia coli [E. coli] as the cause of diseases classified elsewhere; R80.8 Other proteinuria; R77.8 Other specified abnormalities of plasma proteins; I51.89 Other ill-defined heart diseases; I50.810 Right heart failure, unspecified; D64.89 Other specified anemias; R60.0 Localized edema; B96.89 Other specified bacterial agents as the cause of diseases classified elsewhere; I11.0 Hypertensive heart disease with heart failure; R06.02 Shortness of breath

== ENCOUNTER 2023-07-15 11:22 | Inpatient (IN) ==
--- NOTE | 2023-07-15 11:43 | ED.ABDFE ---
HPI Time Seen Time Seen by Provider: 07/15/23 11:43 Complaint Doctors Chief Complaint Comments: 68-year-old female brought in by EMS for evaluation. Patient having diffuse abdominal discomfort, abdominal distention. Has been going on past few days, worsened today. Patient has a history of ascites. Is not currently seeing a primary care provider. Denies any fever, chills, upper respiratory symptoms. She has a slight cough, nonproductive.. Denies nausea, vomiting, diarrhea, constipation. No urinary issues. Feels a bit short of breath. COVID-19 Coronavirus risk:travel/contact w/high risk person: No Has patient experienced Coronavirus symptoms: No Reviewed Nurses Notes Review: Yes Source History Provided: Patient, Family Member and EMS Mode of arrival Mode of Arrival: EMS PMH PMH Past Medical History: Hypertension Past Medical History Comment: Ascites Past Surgical History: No Family History Family Medical History: Diabetes Mellitus Social History Alcohol Use: None Do you use any recreational Drugs:: No Travel Risk Coronavirus risk:travel/contact w/high risk person: No Has patient experienced Coronavirus symptoms: No ROS Review of Systems Constitutional: Weakness Eyes: No Symptoms Reported ENTM: No Symptoms Reported Respiratoy: Short of Breath Cardiovascular: No Symptoms Reported Gastrointestinal/Abdominal: Abdominal Pain Genitourinary: No Symptoms Reported Neurological: Weakness Musculoskeletal: No Symptoms Reported Integumentary: No Symptoms Reported Hematologic/Lymphatic: No Symptoms Reported All Other Systems: Reviewed and Negative PE Vital Signs Vitals: Vital Signs Pulse Rate 97 Pulse Rate 100 Pulse Rate 105 Pulse Rate 58 Respiratory Rate 22 Respiratory Rate 25 Respiratory Rate 21 Respiratory Rate 20 Blood Pressure 97/54 Blood Pressure 100/59 Blood Pressure 101/51 Blood Pressure 123/57 Blood Pressure 109/53 O2 Sat by Pulse Oximetry 91 General General Appearance: Alert and In No Apparent Distress Eyes Eye exam: PERRL and EOMI ENT ENT Exam: Normal Oropharynx and Mucous Membranes Moist Neck Neck Exam: Normal Inspection Respiratory Respiratory Exam: Normal Lung Sounds Bilat; negative Accessory Muscle Use or Respiratory Distress Cardiovascular Cardiovascular Exam: Regular Rate, Normal Rhythm and Normal Heart Sounds Abdominal Exam Abdominal Exam: Normal Bowel Sounds, Distention and Tenderness (diffuse, all quadrants, with guarding, no rebound.) Back Back Exam: Normal Inspection Extremeties Extremities Exam: Normal Inspection Neurologic Neurological Exam: Alert, Oriented X3 and CN II-XII Intact; negative Motor Sensory Deficit Skin Skin Exam: Warm and Dry COURSE Treatment Treatment: 68 y/o female with diffuse abdominal distension, discomfort. + h/o ascites, probable cause of her distension. w/u initiated. Pt given IV furose mide. 1345 -workup shows significant anemia, hemoglobin of 2.7. Patient denies any black stools or obvious sources of blood loss. Recommend admission for transfusion of several units of blood. Patient without a primary care provider now.. Discussed with Dr. Corado, on-call for admissions, he accepts the admission. ROR Labs Reviewed Laboratory Results Reviewed?: Yes 07/15/23 12:25 07/15/23 11:35 Laboratory: WBC 4.9 X10^3/uL (3.6-10.0) 07/15/23 12:25 RBC 1.58 X10^6/uL (3.5-5.4) L 07/15/23 12:25 Hgb 2.7 g/dL (12.0-16.0) L* 07/15/23 12:25 Hct 10.0 % (36.0-47.0) L* 07/15/23 12:25 MCV 63.3 fL (80.0-100.0) L 07/15/23 12:25 MCH 17.2 pg (27.0-34.0) L 07/15/23 12:25 MCHC 27.1 g/dL (33.0-35.0) L 07/15/23 12:25 RDW 24.0 % (11.6-16.5) H 07/15/23 12:25 Plt Count 451 X10^3/uL (150.0-450.0) H 07/15/23 12:25 Plt Count Comment Increased (ADEQUATE) A 07/15/23 12:25 MPV 7.2 fL (7.4-11.0) L 07/15/23 12:25 Neut % (Auto) 76.3 % (42.0-75.0) H 07/15/23 12:25 Lymph % (Auto) 12.0 % (21.0-51.0) L 07/15/23 12:25 [place] % (Auto) 10.9 % (0.0-13.0) 07/15/23 12:25 Eos % (Auto) 0.1 % (0.9-2.9) L 07/15/23 12:25 Baso % (Auto) 0.7 % (0.2-1.0) 07/15/23 12:25 Neut # (Auto) 3.7 x10^3/uL (2.2-4.8) 07/15/23 12:25 Lymph # (Auto) 0.6 X10^3/uL (1.3-2.9) L 07/15/23 12:25 [place] # (Auto) 0.5 x10^3/uL (0.3-0.8) 07/15/23 12:25 Eos # (Auto) 0.0 x10^3/uL (0.0-0.2) 07/15/23 12:25 Baso # (Auto) 0.0 X10^3/uL (0.0-0.1) 07/15/23 12:25 Absolute Nucleated RBC 12.1 /100WBC 07/15/23 12:25 Nucleated RBCs 19 07/15/23 12:25 Plt Morphology Comment Normal (NORMAL) 07/15/23 12:25 RBC Morphology Abnormal (NORMAL) A 07/15/23 12:25 Dimorphic RBCs 1+ 07/15/23 12:25 Anisocytosis 2+ A 07/15/23 12:25 Microcytosis 2+ A 07/15/23 12:25 Target Cells Slight A 07/15/23 12:25 Acanthocytes (Spur) Slight 07/15/23 12:25 Schistocytes Slight A 07/15/23 12:25 Sample Site Rrad 07/15/23 11:48 ABG pH 7.400 (7.35-7.45) 07/15/23 11:48 ABG pCO2 32.0 mmHg (35.0-45.0) L 07/15/23 11:48 ABG pO2 91.0 mmHg (80.0-100.0) 07/15/23 11:48 ABG HCO3 19.8 mmol/L (22-26) L 07/15/23 11:48 ABG O2 Saturation 97.0 % (90-100) 07/15/23 11:48 ABG Base Excess -4.1 mmol/L (-2.0-2.0) L 07/15/23 11:48 [facility] Test Pos 07/15/23 11:48 A-a Gradient 69.0 mmHg 07/15/23 11:48 FiO2 28.0 07/15/23 11:48 Blood Gas Comments Pt rosa maria well. kg/eb 07/15/23 11:48 Sodium 140 mmol/L (136-145) 07/15/23 11:35 Corrected Sodium TNP 07/15/23 11:35 Potassium 3.9 mmol/L (3.5-5.1) 07/15/23 11:35 Chloride 105 mmol/L (98-107) 07/15/23 11:35 Carbon Dioxide 21.1 mmol/L (21-32) 07/15/23 11:35 BUN 19 mg/dL (7-18) H 07/15/23 11:35 Creatinine 0.97 mg/dL (0.55-1.02) 07/15/23 11:35 Est GFR (MDRD) Af Amer > 60 (>60) 07/15/23 11:35 Est GFR (MDRD) Non-Af > 60 (>60) 07/15/23 11:35 Glucose 99 mg/dL (65-99) 07/15/23 11:35 Calcium 8.1 mg/dL (8.5-10.1) L 07/15/23 11:35 Corrected Calcium 9.0 mg/dL (8.5-10.1) 07/15/23 11:35 Total Bilirubin 0.70 mg/dL (0.2-1.0) 07/15/23 11:35 AST 22 Units/L (15-37) 07/15/23 11:35 ALT 8 Units/L (12-78) L 07/15/23 11:35 Alkaline Phosphatase 170 Units/L (46-116) H 07/15/23 11:35 Troponin I High Sens 39.5 ng/L (4.0-60.0) 07/15/23 11:35 Total Protein 7.4 g/dL (6.4-8.2) 07/15/23 11:35 Albumin 2.9 g/dL (3.4-5.0) L 07/15/23 11:35 Globulin 4.5 g/dL (2.5-4.5) 07/15/23 11:35 Albumin/Globulin Ratio 0.6 Ratio (1.1-2.1) L 07/15/23 11:35 Lipase 11 Units/L (16-77) L 07/15/23 11:35 Specimen Type Catherized urine 07/15/23 13:00 Urine Color Yellow (YELLOW) 07/15/23 13:00 Urine Appearance Clear (CLEAR) 07/15/23 13:00 Urine pH 6.0 (5.0 - 8.0) 07/15/23 13:00 Ur Specific [place] 1.015 (1.000-1.030) 07/15/23 13:00 Urine Protein 2+ (NEGATIVE) 07/15/23 13:00 Urine Glucose (UA) Negative (NEGATIVE) 07/15/23 13:00 Urine Ketones Negative (NEGATIVE) 07/15/23 13:00 Urine Blood Negative (NEGATIVE) 07/15/23 13:00 Urine Nitrite Negative (NEGATIVE) 07/15/23 13:00 Urine Bilirubin Negative (NEGATIVE) 07/15/23 13:00 Urine Urobilinogen Normal (NORMAL) 07/15/23 13:00 Ur Leukocyte Esterase Negative (NEGATIVE) 07/15/23 13:00 Urine RBC 0-2 /HPF (0-3) 07/15/23 13:00 Urine WBC 0-2 /HPF (0-5) 07/15/23 13:00 Ur Squamous Epith Cells Rare /HPF (NEGATIVE) 07/15/23 13:00 Urine Bacteria Trace /HPF (NEGATIVE) 07/15/23 13:00 Ur Culture Indicated? No/not indicated 07/15/23 13:00 Crossmatch See Detail 07/15/23 13:32 Hgb 2.7 XRAY XRAY Interpreted by: Self X-ray Results: + R pleural effusion Opioid Opioid Risk Tool Age (Abhinav box if 16-45): No History of Preadolescent Sexual Abuse: No Total: 0 Total Score Risk Category: Low Risk Copyright: Michi CHEUNG predicting aberrant behaviors Discharge Plan Diagnosis Discharge Problem: Severe anemia, Ascites, Pleural effusion, right Discharge Plan Patient Disposition: 09 ADMITTED INPATIENT Condition: Stable Orders to Discharge Patient Discharge Orders: Transfer (Routine); Ordered 07/15/23 Ordered By: Pillo Carty
[2023-07-15 11:52] LABS: ABG ALLEN TEST POS; ABG BASE EXCESS -4.1 mmol/L (-2.0-2.0); ABG HCO3 19.8 mmol/L (22-26)
[2023-07-15] MEDS ORDERED: LASIX IVP ONE (12:02)
[2023-07-15] MEDS: LASIX IVP ONE (12:05)
[2023-07-15 12:19] LABS: ALANINE AMINOTRANSFERASE 8 Units/L (12-78); ALBUMIN 2.9 g/dL (3.4-5.0); ALKALINE PHOSPHATASE 170 Units/L (46-116); ASPARTATE AMINO TRANSFERASE 22 Units/L (15-37); BLOOD UREA NITROGEN 19 mg/dL (7-18); CALCIUM 8.1 mg/dL (8.5-10.1); CARBON DIOXIDE 21.1 mmol/L (21-32); CHLORIDE 105 mmol/L (98-107); CREATININE 0.97 mg/dL (0.55-1.02); GLUCOSE 99 mg/dL (65-99); LIPASE 11 Units/L (16-77); POTASSIUM 3.9 mmol/L (3.5-5.1); SODIUM 140 mmol/L (136-145); TOTAL PROTEIN 7.4 g/dL (6.4-8.2); eGFR NON BLACK RACES > 60 (>60)
[2023-07-15 12:38] LABS: MONOCYTES # (AUTO) 0.5 x10^3/uL (0.3-0.8)
[2023-07-15 12:42] LABS: BASOPHILS % (AUTO) 0.7 % (0.2-1.0); EOSINOPHILS % (AUTO) 0.1 % (0.9-2.9); LYMPHOCYTES # (AUTO) 0.6 X10^3/uL (1.3-2.9); MEAN CORPUSCULAR HEMOGLOBIN 17.2 pg (27.0-34.0); MEAN CORPUSCULAR HGB CONC 27.1 g/dL (33.0-35.0); MEAN CORPUSCULAR VOLUME 63.3 fL (80.0-100.0); MEAN PLATELET VOLUME 7.2 fL (7.4-11.0); MONOCYTES % (AUTO) 10.9 % (0.0-13.0); NEUTROPHILS # (AUTO) 3.7 x10^3/uL (2.2-4.8); NEUTROPHILS % (AUTO) 76.3 % (42.0-75.0); PLATELET COUNT 451 X10^3/uL (150.0-450.0); RED BLOOD COUNT 1.58 X10^6/uL (3.5-5.4)
[2023-07-15 12:52] LABS: HEMOGLOBIN 2.7 g/dL (12.0-16.0)
[2023-07-15 13:11] LABS: PLATELET MORPHOLOGY COMMENT NORMAL (NORMAL)
[2023-07-15 13:12] LABS: ANISOCYTOSIS 2+; MICROCYTOSIS 2+; SCHISTOCYTES SLIGHT; TARGET CELLS SLIGHT
[2023-07-15 13:13] LABS: WHITE BLOOD COUNT 4.9 X10^3/uL (3.6-10.0)
[2023-07-15 13:17] LABS: BILIRUBIN,URINE NEGATIVE (NEGATIVE); BLOOD/HEMOGLOBIN,URINE NEGATIVE (NEGATIVE); GLUCOSE, URINE NEGATIVE (NEGATIVE); KETONES,URINE NEGATIVE (NEGATIVE); LEUKOCYTE ESTERASE ,URINE NEGATIVE (NEGATIVE); NITRITES,URINE NEGATIVE (NEGATIVE); PROTEIN,URINE 2+ (NEGATIVE); UROBILINOGEN,URINE NORMAL (NORMAL)
[2023-07-15 13:25] LABS: APPEARANCE,URINE CLEAR (CLEAR); COLOR,URINE YELLOW (YELLOW)
[2023-07-15 13:26] LABS: BACTERIA,URINE TRACE /HPF (NEGATIVE); RBC,URINE 0-2 /HPF (0-3); SQUAMOUS EPITHELIAL CELL,UR RARE /HPF (NEGATIVE)
--- NOTE | 2023-07-15 14:15 | RAD ---
EXAM:ACUTE ABDOMEN SERI ESHISTORY:ABD DISTENTION ;COMPARISON:No relevant prior studies were available for comparison at the time of interpretation.TECHNIQUE:ACUTE ABDOMEN SERI ESFINDINGS:Chest:Lines and tubes: NoneMediastinum: Cardiomegaly.Pulmonary vessels: There is pulmonary vascular congestion.Lung ortiz: Patchy opacities are seenPleura: There is blunting of the right costophrenic angle. No pneumothorax.Bones and soft tissues: No acute osseous or soft tissue abnormality.AbdomenLines and tubes: NoneNonobstructive bowel gas pattern. No evidence of free intraperitoneal gas. Soft tissues unremarkable. No acute osseous abnormality.IMPRESSION:1. Heart failure with mild pulmonary edema and small right pleural effusion2. No acute intra-abdominal abnormalityTHIS IS AN ELECTRONICALLY VERIFIED FINAL REPORT07/15/2023 2:02 PM - Electronically signed by Qasim Alvarado MD
[2023-07-15] MEDS: NS 250 ML IV 250 ML IV ONE (16:05)
[2023-07-15] MEDS ORDERED: DUONEB 0.5 MG/3 MG (3 mL) NEB SCH (17:00)
[2023-07-15] MEDS: DUONEB 0.5 MG/3 MG (3 mL) NEB SCH (20:00)
[2023-07-15] MEDS: PULMICORT NEB TX 0.5 MG NEB SCH (20:00)
[2023-07-15] MEDS: K-DUR TAB 20 MEQ PO SCH (22:43)
[2023-07-16 00:35] LABS: HEMATOCRIT 16.8 % (36.0-47.0); HEMOGLOBIN 5.1 g/dL (12.0-16.0)
[2023-07-16] MEDS: CONSULT PHARMACY - POTASSIUM & MAGNESIUM XX SCH (07:11)
[2023-07-16] MEDS: PULMICORT NEB TX 0.5 MG NEB ONE (07:12)
--- NOTE | 2023-07-16 08:02 | RAD ---
EXAM:Portable AP chestHISTORY:COPDCOMPARISON:April 04, 2023FINDINGS:Marked stable cardiomegaly. Right pleural effusion obscures the diaphragm and costophrenic angle. No pulmonary consolidation, obvious pulmonary edema or pneumothorax is seen.IMPRESSION:Cardiomegaly with right pleural effusion.THIS IS AN ELECTRONICALLY VERIFIED FINAL REPORT07/16/2023 7:54 AM - Electronically signed by Joesph Willson MD
[2023-07-16 08:45] LABS: BASOPHILS # (AUTO) 0.1 X10^3/uL (0.0-0.1); BASOPHILS % (AUTO) 1.5 % (0.2-1.0); EOSINOPHILS % (AUTO) 0.1 % (0.9-2.9); HEMATOCRIT 22.5 % (36.0-47.0); HEMOGLOBIN 7.3 g/dL (12.0-16.0); LYMPHOCYTES # (AUTO) 0.5 X10^3/uL (1.3-2.9); MEAN CORPUSCULAR HEMOGLOBIN 24.4 pg (27.0-34.0); MEAN CORPUSCULAR HGB CONC 32.2 g/dL (33.0-35.0); MEAN CORPUSCULAR VOLUME 75.5 fL (80.0-100.0); MEAN PLATELET VOLUME 7.1 fL (7.4-11.0); MONOCYTES # (AUTO) 1.1 x10^3/uL (0.3-0.8); MONOCYTES % (AUTO) 13.6 % (0.0-13.0); NEUTROPHILS # (AUTO) 6.1 x10^3/uL (2.2-4.8); NEUTROPHILS % (AUTO) 78.8 % (42.0-75.0); PLATELET COUNT 334 X10^3/uL (150.0-450.0); RED BLOOD COUNT 2.98 X10^6/uL (3.5-5.4); RED CELL DISTRIBUTION WIDTH 26.7 % (11.6-16.5)
[2023-07-16] MEDS ORDERED: PATIENT'S HOME MEDICATION (Omeprazole 40 mg capsule,delayed release(DR/EC)) PO SCH (09:00)
[2023-07-16 09:06] LABS: ALANINE AMINOTRANSFERASE 8 Units/L (12-78); ALBUMIN 2.9 g/dL (3.4-5.0); ALKALINE PHOSPHATASE 191 Units/L (46-116); ASPARTATE AMINO TRANSFERASE 33 Units/L (15-37); BLOOD UREA NITROGEN 21 mg/dL (7-18); CALCIUM 8.2 mg/dL (8.5-10.1); CARBON DIOXIDE 25.8 mmol/L (21-32); CHLORIDE 102 mmol/L (98-107); COR CA(FOR HYPOALB) 9.1 mg/dL (8.5-10.1); COR NA(FOR HYPERGLY) 137 mmol/L (136-145); CREATININE 0.81 mg/dL (0.55-1.02); GLUCOSE 154 mg/dL (65-99); POTASSIUM 3.5 mmol/L (3.5-5.1); SODIUM 136 mmol/L (136-145); TOTAL PROTEIN 7.3 g/dL (6.4-8.2); WHITE BLOOD COUNT 7.7 X10^3/uL (3.6-10.0); eGFR NON BLACK RACES > 60 (>60)
[2023-07-16 09:07] LABS: ANISOCYTOSIS 3+; HYPOCHROMASIA 1+; PLATELET MORPHOLOGY COMMENT NORMAL (NORMAL); POIKILOCYTOSIS 1+; SCHISTOCYTES SLIGHT; TARGET CELLS SLIGHT
[2023-07-16 09:08] LABS: MICROCYTOSIS SLIGHT
[2023-07-16] MEDS: PriLOSEC PO SCH (09:54)
--- NOTE | 2023-07-16 10:19 | DR.H&P ---
H&P - History & Physical for Day of: H&P Date: 07/15/23 - Chief Complaint Chief Complaint: ABDOMINAL DISCOMFORT, ABDOMINAL DISTENTION - History of Present Illness History of Present Illness: IS A 68 YEAR OLD FEMALE. SHE IS NOT CURR ENTLY SEEING A PCP. SHE PRESENTED TO THE ER WITH COMPLAINTS OF DIFFUSE ABDOMINAL DISCOMFORT AND ABDOMINAL DISTENTION. SHE REPORTS THAT SYMPTOMS STARTED A FEW DAYS AND HAVE PROGRESSIVELY GOTTEN WORSE. HER MEDICAL HX INCLUDES HTN, CHF, ANEMIA, AND GERD. PATIENT DENIES FEVER, CHILL, UPPER RESPIRATORY SX, NAUSEA, VOMITING, DIARRHEA, CONSTIPATION. SHE DOES ADMIT TO A SLIGHT COUGH WHICH HAS BEEN NON-PRODUCTIVE. ON ARRIVAL TO THE ER, HER VITALS WERE: 97.5-58-20-91%-123/57. LABS WERE OBTAINED. WBC 4.9, RBC 1.58, HGB 2.7, HCT 10.0, PLT COUNT 451, SODIUM 140, POTASSIUM 3.9, CHLORIDE 105, CARBON DIOXIDE 21.1, BUN 19, CREATININE 0.97, GLUCOSE 99, CALCIUM 8.1, TOTAL BILI 0.70, AST 22, ALT 8, ALK PHOS 170, TROPONIN 39.5, TOTAL PROTEIN 7.4, ALBUMIN 2.9, LIPASE 11. AN ABG WAS OBTAINED AND REVEALED: PH 7.400, PC02 32, P02 91, HC03 19.8, 02 SAT 97, BASE EXCESS -4.1, A-A GRADIENT 69, FI02 28.0. A URINALYSIS WAS OBTAINED AND REVEALED: WBC 0-2, RBC 0-2, BACTERIA TRACE, LEUKOCYTES NEGATIVE. AN ABDOMINAL SERIES WAS OBTAINED AND REVEALED: 1. Heart failure with mild pulmonary edema and small right pleural effusion 2. No acute intra-abdominal abnormality. A CHEST XRAY WAS OBTAINED AND REVEALED: Marked stable cardiomegaly. Right pleural effusion obscures the diaphragm and costophrenic angle. No pulmonary consolidation, obvious pulmonary edema or pneumothorax is seen. PATIENT WAS HOSPITALIZED IN MARCH 2023 FOR TREATMENT OF ANEMIA AND CHF. AT THAT TIME, AN ECHO REVEALED A LEFT ATRIUM MASS. SHE WAS SENT TO [facility] DURING THAT TIME FOR FURTHER EVALUATION. WE WILL OBTAIN THOSE RECORDS. IN THE ER, SHE WAS GIVEN LASIX 40MG IV X 1 AND POTASSIUM CHLORIDE 20MEQ PO X 1. WE ORDERED TYPE & SCREEN AND CROSSMATCH OF FOUR UNITS OF PACKED RED BLOOD CELLS TO BE ADMINISTERED WHEN THEY ARE AVAILABLE. SHE WAS ALSO STARTED ON LASIX 40MG IV BID, DUONEBS QID, PULMICORT NEBS BID, AND OMEPRAZOLE 40MG DAILY. OTHERWISE, WE PLANNED TO FOLLOW-UP WITH AM LABS AND CONTINUE TO MONITOR. FOLLOWING ADMISSION, PATIENT RECEIVED ALL FOUR UNITS OF PACKED RED BLOOD CELLS. REPEAT HEMOGLOBIN 7.3, HEMATOCRIT 22.5, BNP 2120. WE WILL MONITOR H&H. TIME SPENT ON CLINICAL ASSESSMENT, REVIEWING LABS AND IMAGING, DECISION MAKING, AND DOCUMENTATION GREATER THAN 75 MINUTES. - Past Medical History Past Medical History: Anemia, CHF, GERD, Hypertension - Family History Family Medical History: Cancer, [place], Hypertension - Social History Does patient currently use any type of tobacco product: Yes Have you used tobacco products in the last 12 months: Yes Type of Tobacco Use: Cigarettes How many years tobacco product used: 6 Does any household member use tobacco: No Alcohol Use: None Drug Use: None - Review of Systems Constitutional: Weakness Eyes: No Symptoms Reported ENT: No Symptoms Reported Respiratory: Shortness of Breath, SOB with Excertion Cardiovascular: No Symptoms Reported Gastrointestinal: Abdominal Pain Genitourinary: No Symptoms Reported Musculoskeletal: No Symptoms Reported Skin: No Symptoms Reported Neurological: Weakness - Physical Exam Vital Signs: Vital Signs Temperature 98 F Pulse Rate 97 Pulse Rate 93 Pulse Rate 99 Pulse Rate 102 Pulse Rate 84 Pulse Rate 87 Pulse Rate 85 Pulse Rate 85 Pulse Rate 88 Pulse Rate 94 Pulse Rate 93 Respiratory Rate 27 Respiratory Rate 22 Respiratory Rate 22 Respiratory Rate 12 Respiratory Rate 16 Respiratory Rate 13 Respiratory Rate 11 Respiratory Rate 25 Respiratory Rate 32 Respiratory Rate 14 Blood Pressure 118/74 Blood Pressure 114/71 Blood Pressure 108/85 Blood Pressure 112/69 Blood Pressure 111/68 Blood Pressure 104/62 Blood Pressure 107/62 Blood Pressure 108/66 Blood Pressure 104/69 O2 Sat by Pulse Oximetry 93 O2 Sat by Pulse Oximetry 98 O2 Sat by Pulse Oximetry 98 O2 Sat by Pulse Oximetry 99 O2 Sat by Pulse Oximetry 99 O2 Sat by Pulse Oximetry 99 O2 Sat by Pulse Oximetry 99 O2 Sat by Pulse Oximetry 100 O2 Sat by Pulse Oximetry 97 O2 Sat by Pulse Oximetry 99 Oriented: Normal Eyes: Normal Ear: Normal Nose: Normal Throat: Normal Respiratory: Diminished Throughout Cardiovascular: Bradycardia : Normal Auscultation: Bowel Sounds: Normal Palpation: Normal Tenderness: Diffuse, Mild Skin: Normal Musculoskeletal: Normal Psychiatric: Normal Mood Description: Calm Affect: Normal Speech Pattern: Clear - Assessment/Plan (1) Severe anemia Status: Acute Plan: ADMIT, TRANSFUSE PACKED RED BLOOD CELLS, MONITOR H&H, LASIX 40MG IV BID, DUONEBS QID, PULMICORT NEBS BID, AND OMEPRAZOLE 40MG DAILY. (2) CHF (congestive heart failure) Qualifiers: Heart failure type: right-sided Heart failure chronicity: acute on chronic Qualified Code(s): I50.813 - Acute on chronic right heart failure Status: Acute (3) Pleural effusion, right Status: Acute (4) Abdominal pain Qualifiers: Abdominal location: generalized Qualified Code(s): R10.84 - Generalized abdominal pain Status: Acute (5) Weakness Status: Acute (6) Gastroesophageal reflux disease Qualifiers: Esophagitis presence: esophagitis presence not specified Qualified Code(s): K21.9 - Gastro-esophageal reflux disease without esophagitis Status: Chronic - Allergies Allergies/Adverse Reactions: Allergies Allergy/AdvReac Type Severity Reaction Status Date / Time No Known Drug Allergies Allergy Unknown Verified 07/15/23 12:01 - Medications Home Medications: Home Medications Medication Instructions Recorded Confirmed ammonium lactate 12 % topical cream applic topical 12/15/22 12/15/22 apixaban 5 mg tablet (Eliquis) 5 mg PO BID 07/15/23 07/15/23 omeprazole 40 mg capsule,delayed 40 mg PO QDAY 07/15/23 07/15/23 release Previous Rx's Medication Instructions Recorded benzonatate 200 mg capsule 200 mg PO BID-TID PRN cough #30 11/28/22 caps
--- NOTE | 2023-07-16 10:55 | RAD ---
EXAM:CHEST, 1 VIEWHISTORY:SOB, CHF ;COMPARISON:No relevant prior studies were available for comparison at the time of interpretation.TECHNIQUE:CHEST, 1 VIEWFINDINGS:Chest:Lines and tubes: NoneMediastinum: Cardiomegaly.Pulmonary vessels: Pulmonary vasculature is prominent.Lung ortiz: No suspicious airspace opacity.Pleura: There is blunting of the right costophrenic angle. No pneumothorax.Bones and soft tissues: No acute osseous or soft tissue abnormality.IMPRESSION:1. Moderate right pleural effusion2. Findings suggest heart failureTHIS IS AN ELECTRONICALLY VERIFIED FINAL REPORT07/16/2023 10:52 AM - Electronically signed by Qasim Alvarado MD
[2023-07-16] MEDS: OMNIPAQUE 350 mg/mL 100 mL BTL 100 ML ONE (11:28)
[2023-07-16] MEDS: NS 100 ML IV 100 ML ONE (11:29)
[2023-07-16] MEDS: LASIX IVP SCH (11:50)
--- NOTE | 2023-07-16 11:57 | CT ---
EXAM:CTA, CHESTHISTORY:SOB, FOLLOW UP CTA FROM 03/2023;COMPARISON:March 2023TECHNIQUE:Axial CT was performed from the thoracic inlet to the upper abdomen with an arterial phase IV contrast bolus. The axial sequences are reconstructed with multiplaner reformats;volume rendered MIP and/or 3D reconstruction was generated from the original axial dataset.FINDINGS:Cardiac silhouette is markedly enlarged on the duralumin metalworker view. There is multi chamber dilation on the CT exam. The right heart chambers in particular are significantly dilated more so than the left heart chambers. There is evidence of multivessel coronary atherosclerosis. Atheromatous intramural calcifications are also associated with thoracic aorta and aortic arch branch tributaries. There is generalized anasarca of the soft tissues likely related to right-sided heart failure. A moderate right-sided pleural effusion is associated with passive atelectasis. There is a trace left-sided dependent pleural effusion.Respiratory motion artifact degrades the evaluation of the more peripheral pulmonary artery branches. The main pulmonary artery diameter is upper range of normal caliber. There are no centrally occlusive pulmonary artery filling defects associated with main, lobar, or proximal segmental branches meeting criteria for an acute pulmonary thromboembolism.There is mild interstitial congestion with associated interlobular septal thickening. A bandlike fibrous lung opacity is seen within the right apex with bronchiectasis. Moderate emphysema is observed. No organized consolidation is identified. There are no enlarged mediastinal, hilar or axillary lymph nodes of the chest.Hepatomegaly is observed. There is evidence of moderate ascites within the upper abdomen. Reflux of contrast is observed within the IVC and hepatic veins again related to right-sided heart dysfunction.IMPRESSION:Cardiomegaly with multi chamber dilation and massive right-sided heart dilation associated with generalized anasarca of the soft tissues, hepatomegaly and moderate intra-ascites.Moderate right-sided pleural effusion with passive atelectasis. Trace left-sided pleural effusion.Mild upper lobe predominant interstitial edemaModerate emphysema and right upper lobe parenchymal scar-like opacity with bronchiectasisMultivessel coronary atherosclerosisRadiation dose reduction was achieved through individualized adjustment of kVP and/or mA, through adaptive statistical iterative reconstruction, and/or through automated tube current modulation.THIS IS AN ELECTRONICALLY VERIFIED FINAL REPORT07/16/2023 11:54 AM - Electronically signed by Taye Whitmore MD
[2023-07-16 19:52] VITALS: BMI 25.9
[2023-07-16] MEDS: ROBITUSSIN DM PO PRN (20:59)
[2023-07-16] MEDS: K-DUR TAB 20 MEQ PO ONE (20:59)
[2023-07-16] MEDS: BUTT CREAM (COMPOUND) TOP PRN (21:59)
[2023-07-17 05:30] LABS: HEMOGLOBIN 7.3 g/dL (12.0-16.0); MEAN PLATELET VOLUME 7.4 fL (7.4-11.0)
[2023-07-17 05:37] LABS: BASOPHILS % (AUTO) 0.6 % (0.2-1.0); EOSINOPHILS % (AUTO) 0.4 % (0.9-2.9); HEMATOCRIT 22.6 % (36.0-47.0); LYMPHOCYTES # (AUTO) 1.1 X10^3/uL (1.3-2.9); LYMPHOCYTES % (AUTO) 14.5 % (21.0-51.0); MEAN CORPUSCULAR HEMOGLOBIN 24.5 pg (27.0-34.0); MEAN CORPUSCULAR HGB CONC 32.3 g/dL (33.0-35.0); MEAN CORPUSCULAR VOLUME 75.9 fL (80.0-100.0); MONOCYTES % (AUTO) 13.5 % (0.0-13.0); NEUTROPHILS # (AUTO) 5.4 x10^3/uL (2.2-4.8); PLATELET COUNT 328 X10^3/uL (150.0-450.0); RED BLOOD COUNT 2.98 X10^6/uL (3.5-5.4); RED CELL DISTRIBUTION WIDTH 27.2 % (11.6-16.5)
[2023-07-17 05:40] LABS: ALANINE AMINOTRANSFERASE 7 Units/L (12-78); ALBUMIN 2.6 g/dL (3.4-5.0); ALKALINE PHOSPHATASE 177 Units/L (46-116); ASPARTATE AMINO TRANSFERASE 28 Units/L (15-37); BLOOD UREA NITROGEN 13 mg/dL (7-18); CALCIUM 7.8 mg/dL (8.5-10.1); CARBON DIOXIDE 31.8 mmol/L (21-32); CHLORIDE 101 mmol/L (98-107); COR CA(FOR HYPOALB) 8.9 mg/dL (8.5-10.1); CREATININE 0.57 mg/dL (0.55-1.02); GLUCOSE 85 mg/dL (65-99); MAGNESIUM 1.9 mg/dL (2.0-2.9); POTASSIUM 3.1 mmol/L (3.5-5.1); SODIUM 137 mmol/L (136-145); TOTAL PROTEIN 6.8 g/dL (6.4-8.2); eGFR NON BLACK RACES > 60 (>60)
[2023-07-17 05:58] LABS: WHITE BLOOD COUNT 7.6 X10^3/uL (3.6-10.0)
[2023-07-17 05:59] LABS: PLATELET MORPHOLOGY COMMENT NORMAL (NORMAL)
[2023-07-17 06:07] LABS: ANISOCYTOSIS 3+; HYPOCHROMASIA SLIGHT; MICROCYTOSIS SLIGHT; POIKILOCYTOSIS PRESENT; TARGET CELLS PRESENT
[2023-07-17 06:11] LABS: SCHISTOCYTES PRESENT
--- NOTE | 2023-07-17 06:27 | RAD ---
EXAM: CHEST, 1 VIEW HISTORY: SOB; ANEMIA, COPD, HTN, LEFT ATRIAL MASS, RIGHT HEART FAILURE COMPARISON: CTA chest and CXR from 1 day prior. TECHNIQUE: AP view of the chest FINDINGS: Cardiac silhouette is stably enlarged. Moderate right pleural effusion appears worse than prior radi ograph. Associated right base opacity appears worse than prior. Other bilateral scattered hazy and interstitial pulmonary opacities appear similar. No pneumothorax. IMPRESSION: Worse right pleural effusion and associated atelectasis. Hazy and interstitial opacities may be rela jah to background of emphysema. THIS IS AN ELECTRONICALLY VERIFIED FINAL REPORT 07/17/2023 6:24 AM - Electronically signed by Petr Coronel MD
[2023-07-17] MEDS ORDERED: CONSULT PHARMACY - POTASSIUM & MAGNESIUM XX SCH (07:00)
[2023-07-17] MEDS: K-DUR TAB 20 MEQ PO SCH (09:01)
[2023-07-17] MEDS: MAG-OX TAB PO SCH (09:02)
[2023-07-17] MEDS: PROTONIX INJ 40 MG VIAL IVP SCH (10:24)
[2023-07-17] MEDS ORDERED: LASIX IVP PRN (10:27)
[2023-07-17] MEDS: ENTRESTO 24/26 MG TABLET PO SCH (11:21)
[2023-07-17] MEDS: ALDACTONE TAB 25 MG PO SCH (11:21)
--- NOTE | 2023-07-17 14:02 | US ---
EXAM:PELVIC (NON OB)HISTORY:ASCITES, ANEMIA;COMPARISON:NoneTECHNIQUE:Twenty-e ight images made by the pen tender. Moreno scale and color flow images of the pelvis were obtained.FINDINGS:Transabdominal: Bladder is moderately well distended with a thin wall. This makes for a fair acoustic window.The uterus appears anteverted in position. It measures about 8 cm long and 2.5 cm in diameter.The uterine contour is smooth. Myometrium has a homogeneous echotexture. No nodule or mass to suggest a fibroid.The endometrium is normal measuring 4 mm.We were not able to identify the right ovary. Left ovary has normal size and volume. Blood flow is demonstrated by color imaging and spectral wave form analysis.Small volume pelvic free fluid is noted, particularly around the right ovary and in the cul-de-sac.IMPRESSION:1. Small volume pelvic free fluid.2. Nonvisualization of the left ovaryTHIS IS AN ELECTRONICALLY VERIFIED FINAL REPORT07/17/2023 1:58 PM - Electronically signed by Mickey Urbina MD
--- NOTE | 2023-07-17 14:27 | VAS ---
EXAM: [facility] Bilateral upper extremity DVT ultrasound examination. HISTORY: LRG JUGULAR VEIN RT; COMPARISON: TECHNIQUE: Multiple rudd scale and color flow Doppler images of the deep venous system were obtained of the righ t and left upper extremity. FINDINGS: The deep venous system of the right and left upper extremity were evaluated from the level of the int ernal jugular vein through the antecubital fossa. Normal color flow and augmentation can be observed. In addition, normal compression is seen throughout the deep venous system of the imaged upper extremi ty. IMPRESSION: Negative bilateral upper extremity DVT ultrasound exams. THIS IS AN ELECTRONICALLY VERIFIED FINAL REPORT 07/17/2023 2:24 PM - Electronically signed by David Becker
[2023-07-17 18:24] LABS: INR 1.34 (0.8-1.3)
[2023-07-17 18:43] LABS: FREE T4 (FREE THYROXINE) 1.09 ng/dL (0.76-1.46); TSH (3RD GENERATION) 6.462 uIU/mL (0.358-3.74)
[2023-07-17] MEDS: ZOFRAN INJ 4 MG VIAL IVP PRN (21:25)
[2023-07-17] MEDS: DILAUDID INJ IVP PRN (21:25)
[2023-07-18 05:22] LABS: BASOPHILS # (AUTO) 0.1 X10^3/uL (0.0-0.1); BASOPHILS % (AUTO) 0.8 % (0.2-1.0); EOSINOPHILS # (AUTO) 0.1 x10^3/uL (0.0-0.2); EOSINOPHILS % (AUTO) 0.8 % (0.9-2.9); HEMATOCRIT 24.5 % (36.0-47.0); HEMOGLOBIN 7.6 g/dL (12.0-16.0); LYMPHOCYTES # (AUTO) 0.7 X10^3/uL (1.3-2.9); LYMPHOCYTES % (AUTO) 8.8 % (21.0-51.0); MEAN CORPUSCULAR HEMOGLOBIN 24.1 pg (27.0-34.0); MEAN CORPUSCULAR HGB CONC 30.9 g/dL (33.0-35.0); MEAN PLATELET VOLUME 7.7 fL (7.4-11.0); MONOCYTES # (AUTO) 1.2 x10^3/uL (0.3-0.8); MONOCYTES % (AUTO) 15.2 % (0.0-13.0); NEUTROPHILS # (AUTO) 5.7 x10^3/uL (2.2-4.8); NEUTROPHILS % (AUTO) 74.4 % (42.0-75.0); PLATELET COUNT 321 X10^3/uL (150.0-450.0); RED BLOOD COUNT 3.15 X10^6/uL (3.5-5.4); RED CELL DISTRIBUTION WIDTH 28.1 % (11.6-16.5)
[2023-07-18 05:41] LABS: ALANINE AMINOTRANSFERASE 8 Units/L (12-78); ALBUMIN 2.4 g/dL (3.4-5.0); ALKALINE PHOSPHATASE 161 Units/L (46-116); ASPARTATE AMINO TRANSFERASE 26 Units/L (15-37); BLOOD UREA NITROGEN 10 mg/dL (7-18); CALCIUM 7.6 mg/dL (8.5-10.1); CARBON DIOXIDE 34.2 mmol/L (21-32); CHLORIDE 102 mmol/L (98-107); COR CA(FOR HYPOALB) 8.9 mg/dL (8.5-10.1); CREATININE 0.54 mg/dL (0.55-1.02); GLUCOSE 97 mg/dL (65-99); POTASSIUM 3.6 mmol/L (3.5-5.1); SODIUM 137 mmol/L (136-145); TOTAL PROTEIN 6.1 g/dL (6.4-8.2); eGFR NON BLACK RACES > 60 (>60)
--- NOTE | 2023-07-18 05:47 | CT ---
EXAM: CT ABDOMEN AND PELVIS WITH CONTRAST HISTORY: ABD DISTENTION; HX: CHF, ATRIAL MASS, ASTHMA, COPD COMPARISON: None TECHNIQUE: Axial images were acquired of the abdomen and pelvis with IV contrast. Sagittal and coronal reformatt ed images were provided. All images were reviewed in a variety of windows and levels. RADIATION REDUCTION TECHNIQUE: Automated exposure control, adjustment of the mA and/or kV according t o patient size, or iterative reconstruction techniques were used. FINDINGS: LOWER THORAX: The visualized lower lung zones small left and moderate-sized right pleural effusions. There is compressive atelectasis involving portions of the right and left lower lobes. Mild cardiom egaly. The heart size is within normal limits. There is no evidence of a pericardial effusion. LIVER: The liver is slightly decreased in size with a heterogeneous enhancement pattern raising the p ossibility of cirrhosis. No evidence of intrahepatic or extrahepatic duct dilation. GALLBLADDER: The gallbladder is unremarkable. SPLEEN: The spleen is absent. PANCREAS: The pancreas enhances homogenously and is unremarkable. ADRENAL GLANDS: The adrenal glands enhance homogenously and are unremarkable. : The kidneys enhance homogenously. Their collecting system is of normal caliber. URINARY BLADDER: The urinary bladder is unremarkable. There are no soft tissue masses seen in the uri nary bladder. VESSELS: The abdominal aorta is normal in size without evidence of aneurysm or dissection. The celiac artery, superior mesenteric artery, [place] renal arteries, and inferior mesenteric artery are patent . GI: The stomach and small bowel is unremarkable. There are no inflammatory changes seen in the right lower quadrant to suggest secondary signs of acute appendicitis. The appendix is not visualized. Th ere is a large volume of ascites throughout the abdomen and pelvis. LYMPHNODES AND MESENTERY: There is no evidence of retroperitoneal lymphadenopathy. Uterus has been r emoved. BONES: The visualized bones demonstrate degenerative changes. There are no concerning lytic or blasti c lesions identified. IMPRESSION: Large volume ascites throughout the abdomen and pelvis. The liver slightly decreased in size with heterogeneous enhancement raising the possibility of cirrho sis. The spleen is absent. Small left and moderate-sized right pleural effusions with bibasilar compressive atelectasis. THIS IS AN ELECTRONICALLY VERIFIED FINAL REPORT 07/18/2023 5:44 AM - Electronically signed by Pasquale Galeas MD
--- NOTE | 2023-07-18 06:04 | RAD ---
EXAM:CHEST, 1 VIEWHISTORY:SOB; HX: CHF, RT ATRIAL MASS, ASTHMA, COPDCOMPARISON:07/17/2023FINDINGS:The trachea is midline. The cardiac silhouette is mildly enlarged.. Small right pleural effusion with right basilar infiltrate or subsegmental atelectasis. Left lung is clear.. The bony thorax is unremarkable.IMPRESSION:Stable portable chestTHIS IS AN ELECTRONICALLY VERIFIED FINAL REPORT07/18/2023 6:01 AM - Electronically signed by Pasquale Galeas MD
[2023-07-18 06:15] LABS: WHITE BLOOD COUNT 7.7 X10^3/uL (3.6-10.0)
[2023-07-18 06:16] LABS: ANISOCYTOSIS 3+; HYPOCHROMASIA SLIGHT; MICROCYTOSIS SLIGHT; OVALOCYTES PRESENT; PLATELET MORPHOLOGY COMMENT NORMAL (NORMAL); POIKILOCYTOSIS PRESENT; TARGET CELLS PRESENT
[2023-07-18 06:17] LABS: SCHISTOCYTES PRESENT
[2023-07-18] MEDS ORDERED: CONSULT PHARMACY - POTASSIUM & MAGNESIUM XX SCH (07:00)
[2023-07-18] MEDS: MAG-OX TAB PO SCH ×2 (09:05→11:52)
[2023-07-18] MEDS: REVATIO PO SCH (09:05)
[2023-07-18] MEDS: K-DUR TAB 20 MEQ PO SCH (09:06)
[2023-07-18 17:19] LABS: BILIRUBIN,URINE NEGATIVE (NEGATIVE); BLOOD/HEMOGLOBIN,URINE NEGATIVE (NEGATIVE); GLUCOSE, URINE NEGATIVE (NEGATIVE); KETONES,URINE NEGATIVE (NEGATIVE); LEUKOCYTE ESTERASE ,URINE 1+ (NEGATIVE); NITRITES,URINE NEGATIVE (NEGATIVE); PROTEIN,URINE 2+ (NEGATIVE); UROBILINOGEN,URINE NORMAL (NORMAL)
[2023-07-18 17:36] LABS: APPEARANCE,URINE CLEAR (CLEAR); COLOR,URINE PALE YELLOW (YELLOW)
[2023-07-18 17:37] LABS: BACTERIA,URINE TRACE /HPF (NEGATIVE); RBC,URINE 0-2 /HPF (0-3); SQUAMOUS EPITHELIAL CELL,UR RARE /HPF (NEGATIVE)
[2023-07-18] MEDS: COLACE CAP 100 MG PO SCH (21:07)
[2023-07-19 05:10] LABS: BASOPHILS # (AUTO) 0.1 X10^3/uL (0.0-0.1); EOSINOPHILS # (AUTO) 0.1 x10^3/uL (0.0-0.2); HEMOGLOBIN 7.5 g/dL (12.0-16.0)
[2023-07-19 05:28] LABS: BASOPHILS % (AUTO) 1.5 % (0.2-1.0); EOSINOPHILS % (AUTO) 0.9 % (0.9-2.9); HEMATOCRIT 24.8 % (36.0-47.0); LYMPHOCYTES % (AUTO) 31.9 % (21.0-51.0); MEAN CORPUSCULAR HEMOGLOBIN 24.3 pg (27.0-34.0); MEAN CORPUSCULAR HGB CONC 30.4 g/dL (33.0-35.0); MEAN CORPUSCULAR VOLUME 79.9 fL (80.0-100.0); MEAN PLATELET VOLUME 7.9 fL (7.4-11.0); MONOCYTES # (AUTO) 0.8 x10^3/uL (0.3-0.8); MONOCYTES % (AUTO) 8.8 % (0.0-13.0); NEUTROPHILS # (AUTO) 5.3 x10^3/uL (2.2-4.8); NEUTROPHILS % (AUTO) 56.9 % (42.0-75.0); PLATELET COUNT 325 X10^3/uL (150.0-450.0); RED CELL DISTRIBUTION WIDTH 29.1 % (11.6-16.5); WHITE BLOOD COUNT 9.4 X10^3/uL (3.6-10.0)
[2023-07-19 05:38] LABS: ALANINE AMINOTRANSFERASE 9 Units/L (12-78); ALBUMIN 2.5 g/dL (3.4-5.0); ALKALINE PHOSPHATASE 154 Units/L (46-116); ASPARTATE AMINO TRANSFERASE 19 Units/L (15-37); BLOOD UREA NITROGEN 9 mg/dL (7-18); CALCIUM 7.8 mg/dL (8.5-10.1); CHLORIDE 103 mmol/L (98-107); CREATININE 0.43 mg/dL (0.55-1.02); GLUCOSE 98 mg/dL (65-99); MAGNESIUM 1.8 mg/dL (2.0-2.9); POTASSIUM 4.3 mmol/L (3.5-5.1); SODIUM 141 mmol/L (136-145); TOTAL PROTEIN 6.3 g/dL (6.4-8.2); eGFR NON BLACK RACES > 60 (>60)
[2023-07-19 05:43] LABS: CARBON DIOXIDE 33.2 mmol/L (21-32)
--- NOTE | 2023-07-19 05:47 | RAD ---
EXAM:CHEST, 1 VIEWHISTORY:SOB; HX: CHF, ASTHMA, COPD, RT ATRIAL MASSCOMPARISON:07/18/2023FINDINGS:The trachea is midline. The cardiac silhouette is mildly enlarged. Small right pleural effusion with right basilar infiltrate and/or subsegmental atelectasis.. The lungs are clear without focal infiltrate or effusion. The bony thorax is unremarkable.IMPRESSION:Mild cardiomegalySmall right pleural effusion with right basilar infiltrate and/or atelectasis.No significant change from previous 07/18/2023THIS IS AN ELECTRONICALLY VERIFIED FINAL REPORT07/19/2023 5:44 AM - Electronically signed by Pasquale Galeas MD
[2023-07-19 05:55] LABS: ANISOCYTOSIS 3+; HYPOCHROMASIA SLIGHT; PLATELET MORPHOLOGY COMMENT NORMAL (NORMAL); POIKILOCYTOSIS PRESENT
[2023-07-19 05:56] LABS: MICROCYTOSIS SLIGHT; SCHISTOCYTES PRESENT; TARGET CELLS PRESENT
[2023-07-19] MEDS ORDERED: CONSULT PHARMACY - POTASSIUM & MAGNESIUM XX SCH (08:00)
[2023-07-19] MEDS: MAG-OX TAB PO SCH (09:00)
[2023-07-19] MEDS: NS 100 ML IV 100 ML with VENOFER 300 MG IV ONE (16:58)
[2023-07-19] MEDS: NS 500 ML IV 500 ML IV ONE (16:58)
[2023-07-19] MEDS ORDERED: COLACE CAP 100 MG PO SCH (21:00)
[2023-07-19 22:04] VITALS: BP 98/54; PULSE 102; RESP 16; TEMP 98.2; O2SAT 94
== END 2023-07-19 21:35 | disposition short-term general hospital (02) | DRG 292 ==
LOC: ER 11:22 → ICU 13:34
PROVIDERS: ADMIT Internal Medicine; ATTEND Internal Medicine
DX: K21.9 Gastro-esophageal reflux disease without esophagitis; I11.0 Hypertensive heart disease with heart failure; R53.1 Weakness; R10.84 Generalized abdominal pain; R18.8 Other ascites; R79.82 Elevated C-reactive protein (CRP); R79.1 Abnormal coagulation profile; J90 Pleural effusion, not elsewhere classified; I50.813 Acute on chronic right heart failure; L89.152 Pressure ulcer of sacral region, stage 2; D64.89 Other specified anemias